=== PATIENT | female | born 1940 | race Caucasian/White ===

== ENCOUNTER → 2017-11-15 | Day surgery (SDC) | payer MEDICARE, OTHER ==
[~2017-11-15] VITALS: Ht 152.4 cm; Wt 74.8 kg
[~2017-11-15] MED LIST: ALENDRONATE SOD70 M1 PO; ASPIRIN FOR CHI81 MG PO; COREG12.5 MG PO; CRESTOR20 MG PO; DARVOCET N 1001 TAB PO; HYZAAR 25 MG-101 TAB PO; LEVAQUIN250 MG PO; NORVASC5 MG PO; OMEPRAZOLE20 MG PO; [UNRECOGNIZED DRUG - OTHER] OPH
--- NOTE | ~2017-11-15 | O ---
[place], [place] OPERATIVE NOTE NAME: KIRSTY SELBY UNIT #: [id number] ROOM: DOCTOR: HENRIETTA BOGGS MD BIRTHDATE: [birth year] DOS: 11/15/2017 PREOPERATIVE DIAGNOSIS: Combined forms of age-related cataract, left eye POSTOPERATIVE DIAGNOSIS: Combined forms of age-related cataract, left eye OPERATION: Extracapsular cataract extraction by phacoemulsification with posterior chamber intraocular lens implantation, left eye. ANESTHESIA: Monitored standby. OPERATIVE FINDINGS AND PROCEDURE: 2% Xylocaine topical anesthetic gel was applied to the eye in the preop area. The patient was taken to the operating room and prepped and draped in the standard fashion for sterile intraocular surgery. A time out procedure was performed verifying correct patient, correct site and corrects lens with Susanna Boggs M.D. The operating microscope was swung into position and the lid speculum was inserted. Using a [place] paracentesis blade, a paracentesis was made through clear cornea. Viscoelastic was used to fill the anterior chamber. Using a metal keratome a 2.4 mm self-sealing clear corneal cataract incision was made temporally at the limbus. Using a pre-bent 25 gauge cystotome needle, a standard continuous curvilinear capsulorrhexis was performed. The anterior capsule was removed with forceps. The lens nucleus was hydrodissected and phacoemulsified in the posterior chamber. Cortical material was removed with the irrigation aspiration hand piece and the posterior capsule was then polished with a curet under irrigation. The posterior chamber and capsular bag were filled with viscoelastic. A posterior chamber intraocular lens manufactured by: [employer], Model #[id number], and 21.5 diopters in strength were then inserted into the posterior chamber and within the capsular bag using the lens cartridge and injector system. Viscoelastic was removed using the irrigation aspiration handpiece. The anterior chamber was filled with balanced salt solution through the paracentesis. Both the paracentesis site and cataract incisions were hydrated with BSS and verified to be water-tight and self-sealing. Cefuroxime 1 mg/0.1 mL was injected into the anterior chamber through the paracentesis site. The incision checked to be water-tight using a Weck-Susy sponge. The integrity of the cataract wound and ocular tension were checked. Lid speculum and drapes were removed. The patient was transferred from the operating room to the recovery room in satisfactory condition. [place], [place] OPERATIVE NOTE NAME: KIRSTY SELBY UNIT #: [id number] ROOM: DOCTOR: HENRIETTA BOGGS MD BIRTHDATE: [birth year] HENRIETTA BOGGS MD CM:OPRECORD:OPERATIVE NOTE [id number] HENRIETTA BOGGS MD 11/21/17 1019 interface
[2017-11-15 07:00] VITALS: BP 126/78
[2017-11-15 08:52] VITALS: BP 143/87
[2017-11-15 09:06] VITALS: BP 140/75
== END | disposition home or self-care (01) ==
LOC: SDC 11-13 11:00
DX: H25.812 Combined forms of age-related cataract, left eye (principal); I10 Essential (primary) hypertension; K21.9 Gastro-esophageal reflux disease without esophagitis; E78.00 Pure hypercholesterolemia, unspecified; Z79.899 Other long term (current) drug therapy; M19.90 Unspecified osteoarthritis, unspecified site; Z88.2 Allergy status to sulfonamides

== ENCOUNTER → 2017-12-06 | Day surgery (SDC) | payer MEDICARE, OTHER ==
[~2017-12-06] VITALS: Ht 152.4 cm; Wt 74.8 kg
[~2017-12-06] MED LIST changes: +ATORVASTATIN CA40 M1 PO; +COREG12.5 M1 PO; -COREG12.5 MG PO; +METFORMIN HCL500 MG PO; -OMEPRAZOLE20 MG PO; +OMEPRAZOLE40 MG PO; +VITAMIN D3400 UNI1 PO
--- NOTE | ~2017-12-06 | O ---
[place], [place] OPERATIVE NOTE NAME: KIRSTY SELBY UNIT #: [id number] ROOM: DOCTOR: HENRIETTA BOGGS MD BIRTHDATE: [birth year] DOS: 12/06/2017 PREOPERATIVE DIAGNOSIS: Cataract, right eye. POSTOPERATIVE DIAGNOSIS: Cataract, right eye. OPERATION: Extracapsular cataract extraction by phacoemulsification with posterior chamber intraocular lens implantation, right eye. ANESTHESIA: Monitored standby. OPERATIVE FINDINGS AND PROCEDURE: 2% Xylocaine topical anesthetic gel was applied to the eye in the preop area. The patient was taken to the operating room and prepped and draped in the standard fashion for sterile intraocular surgery. A time out procedure was performed verifying correct patient, correct site and corrects lens with Susanna Boggs M.D. The operating microscope was swung into position and the lid speculum was inserted. Using a [place] paracentesis blade, a paracentesis was made through clear cornea. Viscoelastic was used to fill the anterior chamber. Using a metal keratome a 2.4 mm self-sealing clear corneal cataract incision was made temporally at the limbus. Using a pre-bent 25 gauge cystotome needle, a standard continuous curvilinear capsulorrhexis was performed. The anterior capsule was removed with forceps. The lens nucleus was hydrodissected and phacoemulsified in the posterior chamber. Cortical material was removed with the irrigation aspiration hand piece and the posterior capsule was then polished with a curet under irrigation. The posterior chamber and capsular bag were filled with viscoelastic. A posterior chamber intraocular lens manufactured by: [employer], Model #[id number], and 21.5 diopters in strength were then inserted into the posterior chamber and within the capsular bag using the lens cartridge and injector system. Viscoelastic was removed using the irrigation aspiration handpiece. The anterior chamber was filled with balanced salt solution through the paracentesis. Both the paracentesis site and cataract incisions were hydrated with BSS and verified to be water-tight and self-sealing. Cefuroxime 1 mg/0.1 mL was injected into the anterior chamber through the paracentesis site. The incision checked to be water-tight using a Weck-Susy sponge. The integrity of the cataract wound and ocular tension were checked. Lid speculum and drapes were removed. The patient was transferred from the operating room to the recovery room in [facility] condition. [place], [place] OPERATIVE NOTE NAME: KIRSTY SELBY UNIT #: [id number] ROOM: DOCTOR: HENRIETTA BOGGS MD BIRTHDATE: [birth year] HENRIETTA BOGGS MD CM:OPRECORD:OPERATIVE NOTE [id number] HENRIETTA BOGGS MD 12/06/17 0901 interface
[2017-12-06 07:42] VITALS: BP 113/74
[2017-12-06 08:36] VITALS: BP 111/82
[2017-12-06 08:49] VITALS: BP 115/79
[2017-12-06 09:04] VITALS: BP 110/71
== END ==
LOC: SDC 12-01 10:15
DX: E11.36 Type 2 diabetes mellitus with diabetic cataract (principal); Z88.2 Allergy status to sulfonamides; I10 Essential (primary) hypertension; E78.00 Pure hypercholesterolemia, unspecified; K21.9 Gastro-esophageal reflux disease without esophagitis; Z79.84 Long term (current) use of oral hypoglycemic drugs; Z80.9 Family history of malignant neoplasm, unspecified

== ENCOUNTER → 2017-12-13 | Outpatient (CLI) | payer MEDICARE, OTHER | END | disposition home or self-care (01) | LOC: MAMMO 07:33 | DX: Z12.31 Encounter for screening mammogram for malignant neoplasm of breast (principal) ==

== ENCOUNTER 2018-04-27 12:15 | Emergency (ER) | payer MEDICARE, OTHER ==
--- NOTE | ~2018-04-27 | EKG ---
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
[~2018-04-27 12:15] MED LIST changes: -METFORMIN HCL500 MG PO; +METFORMIN HYDR500 MG PO
[2018-04-27 12:34] LABS: BASO % 0.6 % (0.0-1.0); EOS # 0.1 10*3/uL (0.0-0.4); EOS % 1.8 % (1.0-4.0); HEMATOCRIT 37.3 % (37.0-47.0); HEMOGLOBIN 12.2 g/dl (12.0-16.0); LYMPH # 1.7 10*3/uL (1.3-4.4); LYMPH % 25.4 % (27.0-41.0); MEAN CELL VOLUME 90.8 fl (81.0-99.0); MEAN CORPUSCULAR HGB 29.7 pg (27.0-31.0); MEAN CORPUSCULAR HGB CONC 32.7 g/dl (33.0-37.0); MEAN PLATELET VOLUME 10.9 fl (9.6-12.3); MONO # 0.4 10*3/uL (0.1-1.0); MONO % 6.3 % (3.0-9.0); NEUT # 4.5 10*3/uL (2.3-7.9); NEUT % 65.6 % (47.0-73.0); PLATELET COUNT AUTOMATED 194 10*3/uL (130-400); RED BLOOD COUNT 4.11 10*6/uL (4.10-5.10); RED CELL DISTRI WIDTH 13.8 % (0-14.5); WHITE BLOOD COUNT 6.8 10*3/uL (4.8-10.8)
[2018-04-27 12:44] LABS: ACT PARTIAL THROMBO TIME 21.9 SECONDS (20.8-31.5)
[2018-04-27 12:54] LABS: ALBUMIN 3.4 gm/dl (3.1-4.5); ALKALINE PHOSPHATASE 60 U/L (45-117); BUN 17 mg/dl (7-24); CHLORIDE 108 mmol/L (98-107); CPK 84 U/L (26-192); CREATININE 0.77 mg/dL (0.55-1.02); POTASSIUM 3.7 mmol/L (3.5-5.1); SGOT/AST 16 IU/L (3-35); SGPT/ALT 19 U/L (12-78); SODIUM 143 mmol/L (136-145); TOTAL PROTEIN 6.7 gm/dL (6.4-8.2)
[2018-04-27 12:55] LABS: CKMB < 1.0 ng/ml (0.5-3.6)
[2018-04-27 13:00] LABS: TROPONIN I < 0.015 ng/ml (<0.045)
[2018-04-27 14:45] VITALS: BP 116/60
[2018-05-12] MEDS ORDERED: XALATAN 0.005%2.5 ML INTRAOC (10:43)
[2018-05-12] MEDS ORDERED: Synthroid,Levo25 MCG PO (10:47)
[2018-05-12] MEDS ORDERED: TYLENOL325 M1 PO (10:48)
[2018-05-14] MEDS ORDERED: CIPRO500 MG PO (13:42)
[2018-05-14] MEDS ORDERED: ENOXAPARIN80 MG/0.2 SC (13:42)
[2018-05-20] MEDS ORDERED: BIOFREEZE118 ML T (21:50)
[2018-05-20] MEDS ORDERED: Lovenox80 MG/0.8 SC (21:53)
[2018-05-20] MEDS ORDERED: MOM30 M1 PO (21:54)
[2018-05-20] MEDS ORDERED: SYNTHROID25 MCG PO (21:55)
[2018-05-20] MEDS ORDERED: VITAMIN D34000 UNIT PO (21:56)
[2018-05-25] MEDS ORDERED: PROTONIX40 MG PO (14:02)
[2018-05-25] MEDS ORDERED: Carafate1 GM/10 ML PO (14:02)
[2018-05-25] MEDS ORDERED: AUGMENTIN 875875 MG PO (14:02)
== END 2018-04-27 15:05 | disposition short-term general hospital (02) ==
LOC: ED 12:15
PROVIDERS: Nurse Practitioner Family
DX: M48.02 Spinal stenosis, cervical region (principal); R53.1 Weakness; Z88.2 Allergy status to sulfonamides; Z79.899 Other long term (current) drug therapy

== ENCOUNTER 2018-08-22 18:06 | Inpatient (IN) | payer MEDICARE, OTHER, MEDICAID ==
[2018-08-22] VITALS (33 sets, daily range): BP systolic 57–130; BP diastolic 0–82
[~2018-08-22] VITALS: Ht 157.5 cm; Wt 75.0 kg
--- NOTE | ~2018-08-22 | CON ---
[place], [place] REPORT OF CONSULTATION NAME: KIRSTY SELBY UNIT #: [id number] ROOM: 422 DOCTOR: SOFIA FLEMING MD BIRTHDATE: [birth year] DOS: 08/26/2018 GASTROENDOSCOPIC REPORT HISTORY OF PRESENT ILLNESS: This is a 77-year-old patient who [facility] with a chief complaint of GI, complaining of abdominal pain, cramp, some blood in the stool. She has been found to have C. diff colitis, was consulted for evaluation of colitis that resolved resulted through CT scan of the abdomen and pelvis. Recent lab results, basic metabolic panel. Electrolytes imbalance, calcium 7.7 secondary to low albumin. Her H and H dropped to 8 and 26 with platelets of 320. Blood cultures no growth. Chest x-ray recent studies, a small bilateral pleural effusion is noticed. Urine cultures greater than 100,000 E. coli. Stool cultures negative for enteric pathogen except C. diff positivity. CBC differential; white blood cell was 11.6 yesterday with H and H of 8 and 26. C. diff day before yesterday was declared positive. Gallbladder screening was done that previously suggested pericholecystic fluid and gallbladder wall thickening on CT is not appreciated on studies, perhaps it was a false-positive reading. No sonographic evidence of cholelithiasis or sludge was noticed. Comprehensive metabolic panel and liver function tests have been normal. Total albumin 1.9. PAST MEDICAL HISTORY: Associated hyperlipidemia, hypothyroidism, pulmonary embolism, spinal stenosis, urinary tract infection, diabetes mellitus, osteoarthritis, and Guillain-Porcupine syndrome. SOCIAL HISTORY: Resides in penitentiary. Recently for the past several weeks has stopped smoking that has been ongoing since teenage. Nonalcohol consumer. FAMILY HISTORY: Noncontributory. ALLERGIES: SULFA DRUGS. MEDICATIONS: List has been reviewed. REVIEW OF SYSTEMS: HEENT: Denies double vision, blurred vision. RESPIRATORY: Denies acute shortness of breath. CARDIOVASCULAR: Denies acute chest pain. DIGESTIVE SYSTEM: Diarrhea, abdominal cramps, C. diff positivity. PHYSICAL EXAMINATION: GENERAL: Bedridden patient. HEENT: Head: Normocephalic, nontraumatic. Mouth and buccal mucosa benign. No aphthoid ulceration. No thrush. NECK: Supple, no thyromegaly, no cervical lymphadenopathy. CHEST: Symmetric anatomy, equal expansion. No wheeze, no rhonchi. ABDOMEN: Slightly globular. Bowel sounds present. No pulsatile mass. No rebound effect. Nonspecific tender. EXTREMITIES: Right hand edema, 1+ edema of lower extremities. NEUROLOGICAL: Alert, oriented, slightly slow. [place], [place] REPORT OF CONSULTATION NAME: KIRSTY SELBY UNIT #: [id number] ROOM: 422 DOCTOR: SOFIA FLEMING MD BIRTHDATE: [birth year] LABORATORY DATA: Reviewed. Records reviewed. Data reviewed. IMPRESSION: Colitis secondary to Clostridium difficile toxicity secondary to antibiotic therapy, urinary tract infection with Escherichia coli. Other adjunctive diagnoses as outlined in the paragraph of past medical, surgical history. PLAN AND DISCUSSION: We are going to continue with Flagyl IV 500 mg q.8 hours as well. We are going to continue with vancomycin 250 mg q.i.d. and Infectious Disease is managing the UTI, history of Guillain-Porcupine, history of diarrhea and protein calorie malnutrition, all have been recognized as well as dictated above, hypothyroidism, hyperlipidemia, osteoarthritis, diabetes mellitus, pulmonary embolism and cervical spine stenosis. At the present time, I do not believe that the patient has cholecystitis. This has been ruled out after sonographic studies as well as there is no support for it on liver function tests. Thank you very much indeed for your kind referral. SOFIA FLEMING MD CM:CONSTR:REPORT OF CONSULTATION 1149 08/27/18 0556 interface
--- NOTE | ~2018-08-22 | CON ---
[place], [place] REPORT OF CONSULTATION NAME: KIRSTY SELBY UNIT #: [id number] ROOM: [facility] DOCTOR: JOSE LUIS EDWARDS,KEITH BIRTHDATE: [birth year] DOS: 08/23/2018 CARDIOLOGY CONSULTATION REASON FOR CONSULTATION: Bradycardia. CLINICAL HISTORY: The patient is a 77-year-old patient with a history of Guillain-[place] syndrome, diabetes, hypertension, hypothyroidism, was presented to the Emergency Room by EMS because of vomiting and diarrhea due to respiratory insufficiency. The patient was intubated; hence, the history was obtained from her medical records as well as Emergency Room record. There is no family at bedside at the time of my examination. The patient was diagnosed with sepsis and hypotension, was on inotropic support; however, overnight, the patient noted to be hypotensive and bradycardic, hence Cardiology was consulted. The patient was sedated on the ventilator; hence, her medical history and history of present symptoms were obtained from her chart. At the time of my examination, the patient was on ventilator, sedated. Her blood pressures are stable. Heart rates are stable in 80s. REVIEW OF SYSTEMS: Review of the 10 systems is incomplete and limited due to the patient being on ventilator and sedated and there is no family at bedside. PAST MEDICAL HISTORY: 1. Hypertension. 2. 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 3. History of bradycardia. 4. Dyslipidemia. 5. Hypercoagulable state. 6. Hypothyroidism. 7. Anemia. 8. History of pulmonary emboli. 9. Hiatal hernia. 10. Peptic ulcer disease. PAST SURGICAL HISTORY: History of colonoscopy and upper endoscopy. SOCIAL HISTORY: The patient was a former smoker, no illicit drugs, no alcohol. FAMILY HISTORY: Nil contributory. Mother has diabetes. ALLERGIES: Reviewed, including SULFA. HOME MEDICATIONS: Reviewed. REVIEW OF THE DIAGNOSTIC TESTS: Her labs, imaging studies and rhythm strips reviewed. EKG shows sinus rhythm with sinus bradycardia, no acute ST-T changes. The patient was on the ventilator and sedated. PHYSICAL EXAMINATION: [place], [place] REPORT OF CONSULTATION NAME: KIRSTY SELBY UNIT #: [id number] ROOM: [facility] DOCTOR: JOSE LUIS EDWARDS,KEITH BIRTHDATE: [birth year] VITAL SIGNS: Blood pressure 100/78, pulse 80, respiration 16, weight 75 kilos, BMI 30.2. GENERAL: The patient was sedated and on the ventilator. HEAD AND NECK: Limited due to the patient being on the ventilator and sedated. NECK: Supple, no distended neck veins. No carotid bruit. CHEST: Symmetrical. LUNGS: A few scattered rhonchi, diminished at bases. HEART: Regular rhythm, no S3. Grade 1/6 systolic murmur. ABDOMEN: Bowel sounds normal. EXTREMITIES: Showed 1+ edema bilaterally. Distal pulses are palpable. SKIN: Warm and dry. No cyanosis, no clubbing. RECTAL: Deferred. GENITOURINARY: Deferred. REVIEW OF THE IMAGING STUDIES: CT of the chest showed some bilateral pleural effusions and multiple pulmonary nodules. CT abdomen showed a distended gallbladder with thickening of the wall. IMPRESSION: 1. Bradyarrhythmia, resolved. 2. Hypotensive shock, stable currently off inotropic support. 3. Possible sepsis. 4. Respiratory failure, the patient is on the ventilator. 5. Recent Guillain-Lisbon syndrome. 6. Hypertension history. 7. Pleural effusions. 8. Diabetes type 2. 9. History of pulmonary emboli. RECOMMENDATIONS: 1. Currently, blood pressure and heart rates are stable. 2. A 2D echo from a few months ago noted. Continue to monitor heart rate and blood pressures. 3. No further cardiac testing at this time. 4. Pulmonary and Critical Care was consulted for her ventilator management. 5. As I was leaving the ICU, I bumped into her family and her case and cardiac events were discussed with her family members and all questions were answered. KEITH AMAYA MD CM:CONSTR:REPORT OF CONSULTATION 2213 08/24/18 0010 interface
--- NOTE | ~2018-08-22 | PR ---
[place], [place] PROGRESS NOTE [id number] UNIT #: [id number] ROOM: [facility] DOCTOR: VINICIO MCKENZIE MD,ANKITA BIRTHDATE: [birth year] DOS: 08/24/2018 PULMONARY PROGRESS NOTE SUBJECTIVE: The patient has been noted comfortable at this time. She was successfully liberated from mechanical ventilation yesterday and completed a trial of CPAP prior to liberation from mechanical ventilation. Currently, comfortably resting on the bed. She has not been noted any symptoms of chest pain, fever or chills. The patient did not report any symptoms of nausea or vomiting. The diarrhea for the patient was still noted at the time, currently has a rectal tube in place. The patient has ultrasound of the abdomen completed yesterday for assessment of possibility of cholecystitis. She has been also consulted by Dr. Hogan for assessment of diarrhea, possibly colitis and other issues. She denies any symptoms of headache or diplopia. Remaining systems were reviewed, they were noted all negative. OBJECTIVE: VITAL SIGNS: Temperature noted as T-max recorded at 100.4 degree Fahrenheit to normal temperature, respiratory rate 17, heart rate 90, blood pressure 120/65 to 107/67. Intake of 3040 mL, output 3352 mL. NG tube output decreased to 400 mL, which has been removed. ____ 312 mL. HEENT: Shows head was atraumatic, eyes nonicterus. NECK: Supple. CARDIOVASCULAR: S1 and S2 audible. LUNGS: Noted clear. There were no crackles. ABDOMEN: Soft. Bowel sounds were present. There was no tenderness. EXTREMITIES: The patient was noted without any acute edema. MUSCULOSKELETAL: Without any acute deformities. CENTRAL NERVOUS SYSTEM: Generalized weakness was noted secondary to recent history of Guillain-[place] syndrome. DIAGNOSTIC DATA: CMP this morning, BUN normal, creatinine was normal, potassium decreased at 3.0. Albumin 1.9, which is low. CBC: WBC count 13.8, hemoglobin 8.0, hematocrit 25.5, platelet count 352,000. Ultrasound of the abdomen, which was done this morning, was noted resolution of previous pericholecystic fluid and thickening of the gallbladder. IMPRESSION: 1. The patient has been currently admitted to the hospital, noted with possibility of VRE infection with acute sepsis and septic shock. Improvement in end-organ damage and kidney function which are involved. 2. Hypokalemia secondary to diuretics. 3. Fluid overload secondary to current aggressive fluid resuscitation on admission. 4. Resolution of lactic acidosis and acute chronic colitis as suggested by the GI services. There was no evidence of C. diff colitis. There was no GI problem noted. Ultrasound of the abdomen, which was done this morning, does not show any evidence of acute cholecystitis radiologically. PLAN OF MANAGEMENT: Continue antibiotic with reduction antibiotic spectrum [place], [place] PROGRESS NOTE NAME: KIRSTY SELBY UNIT #: [id number] ROOM: [facility] DOCTOR: VINICIO MCKENZIE MD,ANKITA BIRTHDATE: [birth year] based on all the culture results. Follow the recommendations from Infectious Disease specialist. Monitor all the culture results. Oxygen supplementation to maintain pulse ox 92% or greater. Continue to monitor GI symptoms as well. Supportive care. Bronchodilators to continue to be administered to mobilize secretions. Supportive care, other treatment therapy, and plan of management. Cultures of the endotracheal aspirate is pending. Gram stain has been noted moderate white blood cells and few epithelial cells with gram-positive cocci in pairs. Vasopressor has been already discontinued this morning with gradual tapering. Intravenous fluid will be discontinued later on today. Supplementation of potassium orally. The past, family, social, and surgical history of the patient remains unchanged since my consultation of yesterday. ANKITA MOONEY MD CM:PNTRANS [id number] ANKITA MCKENZIE MD 08/24/18 1031 interface
--- NOTE | ~2018-08-22 | PR ---
[place], [place] PROGRESS NOTE NAME: KIRSTY SELBY UNIT #: [id number] ROOM: 422 DOCTOR: VINICIO MCKENZIE MD,ANKITA BIRTHDATE: [birth year] DOS: 08/28/2018 PULMONARY ADDENDUM NOTE SUBJECTIVE: The patient has been seen and examined, [id number] encounter. History was confirmed. Labs were reviewed. Assessment and management of the patient today noted partially completed. Note done by the medical imaging technician approved. She has been noted comfortable at this time, resting on the bed with gradual improvement in the respiratory symptom noted, symptoms of shortness of breath has been noted, mild at rest. Denies symptoms of fever or chills. Denies symptoms of hematemesis or melena. Continued on aggressive treatment for C. diff colitis as well and being closely monitored by the GI Services for that. PHYSICAL EXAMINATION: VITAL SIGNS: Normal temperature, respiratory rate of 18, heart rate of 93, blood pressure 136/93. Pulse oxygen saturation recorded as 94% on 2 liters nasal cannula. HEENT: Head was atraumatic. Eyes nonicterus. CARDIOVASCULAR: S1, S2 audible. LUNGS: Without any wheeze or crackles. ABDOMEN: Soft, hyperactive bowel sounds without any tenderness. IMPRESSION: The patient with a stable respiratory status, status post liberation from mechanical ventilation, acute Clostridium difficile colitis and history of recent diagnosis for the management of Guillain-[place] syndrome. PLAN OF MANAGEMENT: Bedside physical therapy, oxygen supplementation and other treatment therapy, plan of management in progress will be continued. Usual care. ANKITA MOONEY MD CM:PNTRANS [phone] ANKITA MCKENZIE MD 08/29/18 0004 interface
--- NOTE | ~2018-08-22 | PR ---
[place], [place] PROGRESS NOTE NAME: KIRSTY SELBY UNIT #: [id number] ROOM: 422 DOCTOR: VINICIO MCKENZIE MD,ANKITA BIRTHDATE: [birth year] DOS: 08/26/2018 SUBJECTIVE: The patient has been noted comfortable at this time and transferred from the Intensive Care Unit to the telemetry floor. The diarrhea still reported. There was no symptoms of shortness of breath, coughing, or sputum expectoration. She has been treated for the C. diff colitis with intravenous Flagyl and oral vancomycin high dose. The patient denies any symptoms of sputum expectoration, [id number]-mu-fscmwyld cough noted at times. OBJECTIVE: VITAL SIGNS: Normal temperature, respiratory rate 18, heart rate 75, blood pressure 155/95. Pulse ox saturation on 2 liters nasal cannula 96% saturation. HEENT: Head was atraumatic. Eyes nonicterus. NECK: Supple. CARDIOVASCULAR: S1, S2 audible. LUNGS: Without any wheeze or crackles. ABDOMEN: Soft, nontender, bowel sounds present. EXTREMITIES: No acute edema. IMPRESSION: 1. Acute C. difficile colitis with stable respiratory failure, status post liberation from mechanical ventilation with Escherichia coli pneumonia. PLAN OF TREATMENT: No changes in plan of treatment, the patient seems to be doing clinically better and would be continue current therapy, plan of management and care plan, usual care and supportive plan of treatment and therapies. ANKITA MOONEY MD CM:PNTRANS [id number] ANKITA MCKENZIE MD 08/27/18 0522 interface
--- NOTE | ~2018-08-22 | PR ---
[place], [place] PROGRESS NOTE NAME: KIRSTY SELBY UNIT #: [id number] ROOM: 422 DOCTOR: VINICIO MCKENZIE MD,ANKITA BIRTHDATE: [birth year] DOS: 09/01/2018 PULMONARY PROGRESS NOTE SUBJECTIVE: The patient was noted comfortable at this time without any acute distress, has not been noted with symptoms of chest pain, fever or chills. The diarrhea of the patient has resolved. Currently, the patient was noted somewhat constipated. There were no symptoms of cough reported by the patient. OBJECTIVE: VITAL SIGNS: For the patient, which have been recorded shows a normal temperature, respirations 16, heart rate 76, blood pressure 133/92. Pulse oxygen saturation recorded as 97% on 2 liters nasal cannula. HEENT: Examination shows head was atraumatic. Eyes nonicterus. CARDIOVASCULAR: S1, S2 audible. ABDOMEN: Soft. Bowel sounds present. EXTREMITIES: Without acute edema. IMPRESSION: 1. Stable respiratory status, requiring 2 liters of oxygen supplementation with respiratory failure. 2. Resolving Clostridium difficile colitis. 3. 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 PLAN OF MANAGEMENT: Continue the current therapy at this time as in progress. Usual care, other supportive plan of management and care plan and treatment and therapies. Usual treatment, other therapies. ANKITA MOONEY MD CM:PNTRANS [id number] ANKITA MCKENZIE MD 09/02/18 0017 interface
--- NOTE | ~2018-08-22 | PR ---
[place], [place] PROGRESS NOTE NAME: KIRSTY SELBY UNIT #: [id number] ROOM: 422 DOCTOR: VINICIO MCKENZIE MD,ANKITA BIRTHDATE: [birth year] DOS: 09/04/2018 SUBJECTIVE: The patient noted comfortable at this time, resting without any acute shortness of breath, coughing, sputum expectoration, or chest pain. She was complaining of mild diarrhea this morning. Otherwise, the patient noted constipated as well. Continue to receive the medical management of C. difficile colitis. The oxygen supplement was given for medical management of hypoxia. OBJECTIVE: VITAL SIGNS: Normal temperature, respiratory rate 17, heart rate 86, blood pressure ____ 114/76. The pulse oxygen saturation on 2 liters nasal cannula 97% saturation. HEENT: Examination shows head was atraumatic. Eyes nonicterus. NECK: Supple. CARDIOVASCULAR: S1, S2 audible. LUNGS: Without wheeze or crackles. ABDOMEN: Soft and nontender. IMPRESSION: Stable respiratory status, pulmonary standpoint with respiratory failure. 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 Discharge planning at this time, but still pending. The patient has been [facility] to [facility] and will be transferred after completion of paperwork authorization. ANKITA MOONEY MD CM:PNTRANS [phone] ANKITA MCKENZIE MD 09/04/18 1525 interface
--- NOTE | ~2018-08-22 | PR ---
[place], [place] PROGRESS NOTE NAME: KIRSTY SELBY UNIT #: [id number] ROOM: 422 DOCTOR: VINICIO MCKENZIE MD,ANKITA BIRTHDATE: [birth year] DOS: 08/29/2018 The patient was independently seen and examined in titl-yu-loyi encounter. History was confirmed. Physical examination performed. Labs were reviewed. Note done by the emergency medical service manager approved. The assessment and management of the patient's today's note was personally completed. SUBJECTIVE: The patient was still noted with significant weakness, which are noted generalized. She has a rectal tube in place for the diarrhea and C. diff colitis. Shortness of breath of the patient was noted stable. There were no symptoms of coughing, sputum expectoration or any chest pain. OBJECTIVE: VITAL SIGNS: Vital signs of the patient, which has been recorded shows a normal temperature, respiratory rate 18, heart rate of 86, blood pressure 122/77. HEENT: No acute change. NECK: Supple. CARDIOVASCULAR: S1, S2 audible. LUNGS: Without any wheeze or crackles at the present time. ABDOMEN: Soft, nontender. Bowel sounds present. EXTREMITIES: Without any acute edema. 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 PLAN OF MANAGEMENT: Continuation of current therapy, plan of management. Discharge planning of the patient after clearance from the Infectious Disease specialist. In the meantime, continue other therapy, plan of management, care plan of treatment. Usual care and therapies. ANKITA MOONEY MD CM:PNTRANS [id number] ANKITA MCKENZIE MD 08/29/187 interface
--- NOTE | ~2018-08-22 | PR ---
[place], [place] PROGRESS NOTE NAME: KIRSTY SELBY UNIT #: [id number] ROOM: 422 DOCTOR: VINICIO MCKENZIE MD,ANKITA BIRTHDATE: [birth year] DOS: 09/03/2018 SUBJECTIVE: The patient was noted comfortable at this time without any acute distress. She denies symptoms of chest pain, shortness of breath at rest, noted mostly bed bound because of current neuromuscular weakness after the Guillain-[place] syndrome. The patient denies symptoms of chest pain or cough. OBJECTIVE: VITAL SIGNS: Normal temperature, respiratory rate 18, pulse 94, blood pressure 128/80 to 157/96. Pulse oxygen saturation recorded on 2 liters 90% saturation. HEENT: No acute change. NECK: Supple. CARDIOVASCULAR: S1, S2 audible. LUNGS: The patient was noted without any wheezing or crackles at the present time. ABDOMEN: Soft, nontender. EXTREMITIES: No edema. IMPRESSION: Stable respiratory status, respiratory failure, still requires oxygen supplementation due to muscular weakness for the patient from history of Guillain-[place] syndrome. PLAN OF MANAGEMENT: No changes in plan of therapy at this time. Continue the patient's current therapy, plan of management and care plan of treatment. Other supportive therapy, plan of management, care plan and treatment and therapies. ANKITA MOONEY MD CM:PNTRANS [phone] ANKITA MCKENZIE MD 09/03/18 2313 interface
--- NOTE | ~2018-08-22 | PR ---
[place], [place] PROGRESS NOTE NAME: [id number] UNIT #: [id number] ROOM: 422 DOCTOR: VINICIO MCKENZIE MDANKITA BIRTHDATE: [birth year] DOS: 08/25/2018 PULMONARY PROGRESS NOTE SUBJECTIVE: The patient was still noted diarrhea with abdominal cramping and pain. Shortness of breath has been noted improved. Oxygen supplementation continued with nasal cannula. She has not been noted symptoms of fever or chills. Culture of the endotracheal aspirate noted abnormal for gram-negative bacilli. Isolation of E. coli, it was noted pansensitive organism. The patient has not been noted symptoms of fever or chills. General weakness and fatigue were noted. She denies any pain or edema of the lower extremities. Remaining systems were reviewed and they were noted all negative. PHYSICAL EXAMINATION: VITAL SIGNS: Normal temperature to 99 degree Fahrenheit, respiratory rate of 17-19, heart rate of 72-83, and blood pressure of 121/94-137/92. The pulse oxygen saturation on 3 liters nasal cannula was 98% saturation. HEENT: On examination, head was atraumatic. Eye nonicterus. NECK: Supple. CARDIOVASCULAR SYSTEM: S1, S2 is audible. LUNGS: The patient was noted without any crackles, rhonchi, or wheezing. ABDOMEN: Soft, nontender. Bowel sounds present. EXTREMITIES: The patient noted without any acute edema. MUSCULOSKELETAL: Without any acute deformities. CENTRAL NERVOUS SYSTEM: Cranial nerves 2-12 were noted intact. Generalized weakness was noted. IMPRESSION: 1. The patient has been currently noted with Clostridium difficile colitis with repeat specimen noted positive. 2. A 4 mm nodule in the left upper lobe at this time to be further addressed as an outpatient. 3. Escherichia coli isolation, endobronchial tree, possibility of bronchitis cannot be completely excluded. PLAN OF MANAGEMENT: Aggressive management of the C. difficile colitis. Bronchodilators administration. The patient has been receiving the intravenous Flagyl and oral high dose of vancomycin. Rocephin could be given for a total of 5 days and then it could be discontinued. Other supportive therapy, plan of management, care plan, and treatment. Physical therapy at the bedside. The patient will be transferred from Intensive Care Unit to the medical floor for continued medical management. Oxygen supplementation to maintain pulse ox saturation of 92% or greater. [place], [place] PROGRESS NOTE NAME: KIRSTY SELBY UNIT #: [id number] ROOM: 422 DOCTOR: VINICIO MCKENZIE MD,ANKITA BIRTHDATE: [birth year] ANKITA MOONEY MD CM:PNJENIFER [phone] ANKITA MCKENZIE MD 08/26/18210 interface
--- NOTE | ~2018-08-22 | PR ---
[place], [place] PROGRESS NOTE NAME: KIRSTY SELBY UNIT #: [id number] ROOM: 422 DOCTOR: VINICIO MCKENZIE MD,ANKITA BIRTHDATE: [birth year] DOS: 09/02/2018 SUBJECTIVE: Comfortably resting on the bed without any acute distress. There were no symptoms of chest pain, coughing, shortness of breath reported at this time are noted with severe generalized neuromuscular weakness that remains persistent diarrhea, resolved. OBJECTIVE: VITAL SIGNS: Normal temperature, respiratory rate 18, heart rate 85, blood pressure 146/93. Pulse oxygen saturation recorded as 92% on 2 liter nasal cannula at rest. HEAD, EYES, EARS, NOSE, AND THROAT: No acute change. NECK: Supple. CARDIOVASCULAR SYSTEM: S1, S2 audible. LUNGS: Without any wheezing or crackles. ABDOMEN: Soft, nontender. EXTREMITIES: No edema. IMPRESSION: Stable respiratory status, acute respiratory failure liberation from mechanical ventilation, neuromuscular weakness secondary to Guillain-[place] syndrome, resolving C. difficile colitis. PLAN OF TREATMENT: No change in plan of management. Continue oxygen supplementation, maintain a pulse ox 92% or greater. Other therapy, plan of management and care as previously. Usual care, other supportive plan of management and treatments. ANKITA MOONEY MD CM:PNTRANS [phone] ANKITA MCKENZIE MD 09/02/18 1519 interface
--- NOTE | ~2018-08-22 | PR ---
[place], [place] PROGRESS NOTE NAME: KIRSTY SELBY UNIT #: [id number] ROOM: 422 DOCTOR: NAVIN JULES DO BIRTHDATE: [birth year] DOS: 08/29/2018 SUBJECTIVE: The patient was seen and evaluated on general medical floor. The patient notes that her diarrhea is improving at this time. The patient denies any acute shortness of breath, wheezing, sputum production or any chest pain. The patient is comfortable. PHYSICAL EXAMINATION: VITAL SIGNS: Temperature 97.8, pulse 86, respiratory rate 18, blood pressure 123/77, pulse ox 96% on 2 liters nasal cannula. GENERAL: The patient is alert and oriented. No signs of distress. HEENT: Atraumatic, normocephalic. Eyes: PERRLA, nonicteric. NECK: Supple. CARDIOVASCULAR: Regular rate and rhythm. No murmurs, rubs or gallops. LUNGS: Clear to auscultation bilaterally. ABDOMEN: Soft, nontender. Bowel sounds present. EXTREMITIES: No new changes or edema. NEUROLOGIC: Grossly intact. No neurological deficits. IMPRESSION: Acute Clostridium difficile colitis with resolving acute respiratory failure. PLAN OF MANAGEMENT: Continue oxygen titration to maintain pulse ox above 92%. Continue antibiotic recommendations per ID specialist for C. diff and supportive therapy, plan of management. The patient is stable for discharge from a pulmonology standpoint. Navin Jules, ANKITA MOONEY MD CM:PNJENIFER [phone] NAVIN JULES DO 08/29/18 1926 interface
--- NOTE | ~2018-08-22 | PR ---
[place], [place] PROGRESS NOTE NAME: [facility] [id number] UNIT #: [id number] ROOM: 422 DOCTOR: JAVIER SALAZARDECEMBER BIRTHDATE: [birth year] DOS: 08/25/2018 SUBJECTIVE: The patient is being followed for severe C. diff as well as UTI. She had urine culture with E. coli. She is on Rocephin for that as well as oral vancomycin for her C. diff and Flagyl. WBCs are improving. She is alert and oriented. Complains of significant pain in her bilateral shoulders, which she states is chronic. She had some nausea earlier. No emesis. Has an FMS and with liquid stool as well as Wheeler catheter in place, quadriplegic, has Guillain-[place]. Chest x-ray from today shows small bilateral pleural effusions and probable atelectasis. She has been afebrile. Further review of systems is unremarkable. CURRENT MEDICATIONS: Include Robaxin, Flagyl, Rocephin, oral vancomycin, Cepacol, Sublimaze, Protonix, Carafate, Humalog, Tylenol. LABORATORY DATA: WBCs are down to 11.6, platelets 317. BUN 8, creatinine 0.31. PHYSICAL EXAMINATION: VITAL SIGNS: Temperature 97.8, pulse 65, respirations 18, BP 137/83. GENERAL: A 77-year-old female, in no acute distress. HEAD, EYES, EARS, NOSE AND THROAT: Normocephalic, atraumatic, chronically ill in appearance. LUNGS: Diminished bilaterally. Respirations even and unlabored. HEART: Regular rhythm. No murmur appreciated. ABDOMEN: Soft, generalized tenderness. Positive bowel sounds. FMS with liquid stool. Wheeler catheter draining yellow urine with some sediment. EXTREMITIES: No edema. Does have contractures of the upper extremities. Again, she is quadriplegic. SKIN: Warm, pale, dry, free of rashes. ASSESSMENT: Clostridium difficile colitis as well as urinary tract infection with Escherichia coli. PLAN: She is to continue on p.o. vancomycin, IV Flagyl as well as Rocephin for the UTI. TINY HERRERA CNP [place], [place] PROGRESS NOTE NAME: KIRSTY SELBY UNIT #: [id number] ROOM: 422 DOCTOR: JAVIER SALAZAR BIRTHDATE: [birth year] Cathleen Sloan MD CM:PNJENIFER [id number] JANUARY JAVIER SALAZAR 08/26/18 0846 interface
--- NOTE | ~2018-08-22 | PR ---
[place], [place] PROGRESS NOTE NAME[id number] UN[facility] #: [id number] ROOM: 422 DOCTOR: SOFIA FLEMING MD BIRTHDATE: [birth year] DOS: 08/27/2018 SUBJECTIVE: A 77-year-old patient, who was presented with multiple medical issues, among which has been her urinary tract infection and a small bilateral pleural effusion compatible with atelectasis and suspected urinary tract infection as well. The patient has been on antibiotic for that purpose. Also, she is known with C. diff toxicity and she is on Flagyl and vancomycin for this coverage. Her H and H has been 9 and 28. Her white blood cell has been 8.2. In general, she appears content with progress that she has. Her appetite remains intact. Her bowel movements she understands that she has rectal tube in and has been high volume fluids that are being lost secondary to C. diff and her abdominal pain is mild. There was a concern that she may have cholecystitis. A sonographic study has been done and the sonographic study was negative for pericholecystic fluid. Her basic metabolic panel was showing electrolytes, potassium of 3.1. I need to talk to the nurse for this case. BUN and creatinine is 3 and 0.33 respectively MEDICATIONS: She is on vancomycin is 250 q.i.d. and Flagyl 500 mg t.i.d. REVIEW OF SYSTEMS: HEENT: Denies double vision, blurred vision. RESPIRATORY: Denies acute shortness of breath. CARDIOVASCULAR: Denies acute chest pain. DIGESTIVE SYSTEM: No emesis; however, nonspecific abdominal pain, diarrhea, and cramp. PHYSICAL EXAMINATION: GENERAL: The patient is a frail patient. HEENT: Head is normocephalic, nontraumatic. Mouth and buccal mucosa benign. NECK: Supple. No thyromegaly. CHEST: Symmetric anatomy. Few scattered rhonchi. HEART: Normal sinus rhythm. No gallop. No murmur. ABDOMEN: Globular, large, soft. No hepato-organomegaly. Bowel sounds present. EXTREMITIES: Benign. NEUROLOGIC: She is alert, fully oriented. IMPRESSION AND PLAN: Clostridium difficile toxicity, urinary tract infection with Escherichia coli, under treatment for urinary tract infection as well as under treatment for Clostridium difficile colitis. Other adjunctive diagnoses has been already outlined and the latest sonographic study of gallbladder has declared no pericholecystic fluid, no cholecystitis, and there were no abnormalities of LFTs. She does not have a right upper quadrant rebound tenderness. [place], [place] PROGRESS NOTE NAME: KIRSTY SELBY UNIT #: [id number] ROOM: [facility] DOCTOR: SOFIA FLEMING MD BIRTHDATE: [birth year] SOFIA FLEMING MD CM:PNTRANS [phone] SOFIA FLEMING MD 08/28/18 0443 interface
--- NOTE | ~2018-08-22 | EKG ---
[place], [place] ELECTROCARDIOGRAM REPORT NAME: KIRSTY SELBY UNIT #: [id number] ROOM: 422 DOCTOR: JESSICA DRAFT REPORT BIRTHDATE: [birth year] [facility] Test Date: 2018-08-22 Test Time: 18:28:14 Pat Name: KIRSTY SELBY Department: Room: 422 Gender: F Medical Secretary: TANESHA : 1940 Requested By: CHLOE SUERO Order Number: [id number] Reading MD: Adriana Christina MD Measurements Intervals [place] Rate: 52 P: 53 MO: 164 QRS: -31 QRSD: 107 T: 30 QT: 472 QTc: 439 Interpretive Statements Sinus rhythm Left axis deviation Baseline wander in lead(s) V1 Compared to ECG 08/17/2018 07:04:59 No significant changes Electronically Signed On 08-28-2018 11:06:45 PST by Adriana Christina MD CM:EKGRPT:ELECTROCARDIOGRAM REPORT [id number] CHLOE VALLEJO DRAFT REPORT CHLOE SUERO DO
--- NOTE | ~2018-08-22 | PR ---
[place], [place] PROGRESS NOTE NAME: KIRSTY SELBY UNIT #: [id number] ROOM: 422 DOCTOR: NAVIN JULES DO BIRTHDATE: [birth year] DOS: 08/31/2018 PULMONOLOGY PROGRESS NOTE SUBJECTIVE: The patient was seen and evaluated on the general medical floor. The patient reports that she no longer has experienced diarrhea. The patient reports they are also [facility] so that she can be discharged. The patient is comfortable at this time. PHYSICAL EXAMINATION: VITAL SIGNS: Temperature 98.7, pulse 76, respiratory rate 18, blood pressure 144/92, pulse ox 96% on 2 liters nasal cannula. HEAD: Atraumatic, normocephalic. EYES: PERRLA, nonicteric. NECK: Supple. HEART: Regular rate and rhythm. No murmurs, rubs, gallops. LUNGS: Clear to auscultation bilaterally. ABDOMEN: Soft, nontender. Bowel sounds present. EXTREMITIES: No edema, clubbing or cyanosis. NEUROLOGIC: Grossly intact. No neurological deficits. ASSESSMENT: Resolving acute Clostridium difficile colitis with resolving acute respiratory failure. PLAN OF MANAGEMENT: The patient is stable for discharge from a Pulmonology standpoint once [facility]. Continue antibiotic recommendations per ID specialist for C. diff and other supportive therapy plan of management. Navin Jules DO ANKITA MOONEY MD CM:PNJENIFER [id number] NAVIN JULES DO 08/31/18 1702 interface
--- NOTE | ~2018-08-22 | PR ---
[place], [place] PROGRESS NOTE NAME: [id number] UNIT #: [id number] ROOM: 422 DOCTOR: JAVIER SALAZARDECEMBER BIRTHDATE: [birth year] DOS: 08/26/2018 SUBJECTIVE: The patient is a 77-year-old female being followed for UTI and severe C. diff. She also suffers from Guillain [place]. She is more alert. Continues to complain of severe pain of her shoulders and arms and around C7, does have some nausea. No emesis. Continues with liquid stools ____ FMS, has Wheeler catheter in place. No shortness of breath. She has been afebrile. CURRENT MEDICATIONS: Include oral vancomycin, Robaxin, IV Flagyl, IV Rocephin, Cepacol, Sublimaze, Protonix, Carafate, Humalog, Tylenol, milk of mag. LABORATORY DATA: WBCs 9.6, platelets 324. BUN 6, creatinine 0.33. PHYSICAL EXAMINATION: VITAL SIGNS: Temperature 97.4, pulse 73, respirations 18, BP 159/104. GENERAL: A 77-year-old female, alert and oriented. HEAD, EYES, EARS, NOSE AND THROAT: Normocephalic. No thrush. She does have some tenderness at C7. LUNGS: Clear to auscultation bilaterally. Respirations even and unlabored. HEART: Regular rhythm. No murmur appreciated. ABDOMEN: Soft, mild distention, generalized tenderness. Positive bowel sounds. EXTREMITIES: No lower extremity edema, able to move her lower extremities. Left upper extremity with contracture deformity. Right upper extremity with +2 to 3 edema. She has right IJ in place. She has significant discomfort of her bilateral upper extremities, especially with any movement and severe weakness. SKIN: Warm, dry, free of rashes. ASSESSMENT: Severe Clostridium difficile colitis as well as Escherichia coli bacteriuria. PLAN: She is to continue Rocephin as well as oral vancomycin and IV Flagyl, though we may be able to back off of IV Flagyl as soon as her white count is down to normal. DECEMBER MARTIN HERRERA [place], [place] PROGRESS NOTE NAME: KIRSTY SELBY UNIT #: [id number] ROOM: 422 DOCTOR: JAVIER SALAZAR,DECEMBER BIRTHDATE: [birth year] Cathleen Sloan MD CM:CHANG [phone] DECEMBER JAVIER SALAZAR 08/27/18 0848 interface
--- NOTE | ~2018-08-22 | PR ---
[place], [place] PROGRESS NOTE NAME: KIRSTY SELBY UNIT #: [id number] ROOM: 422 DOCTOR: VINICIO MCKENZIE MD,ANKITA BIRTHDATE: [birth year] DOS: 08/31/2018 The patient is independently seen and examined, olju-xy-kkke encounter, history was confirmed. Physical examination performed. The labs were reviewed. The note done by the medical dermatologist approved. Assessment and management for today's note were personally completed as well. SUBJECTIVE: The patient has been noted comfortable at the present time, resting on the bed. Denies acute shortness of breath. The patient does not have symptoms of coughing or wheezing. The diarrhea continued to resolve progressively as per patient. OBJECTIVE: VITAL SIGNS: For the patient with a normal temperature, respiratory rate 18-76, blood 144/92. Pulse oxygen saturation on 2 liters 95% saturation. HEENT: Examination shows head was atraumatic. Eyes: No icterus. NECK: Supple. CARDIOVASCULAR: S1, S2 audible. IMPRESSION: Resolving acute Clostridium difficile colitis, improving acute respiratory failure. General weakness and fatigue with history of Guillain-[place] syndrome ____ neuromuscular weakness that remains persistent. PLAN OF THERAPY: No changes in the plan of care at this time. Continuation of current plan of management as in progress. Usual care, other supportive plan of therapy and treatments and care. ANKITA MOONEY MD CM:PNTRANS 02 [phone] ANKITA MCKENZIE MD 08/31/181950 interface
--- NOTE | ~2018-08-22 | PR ---
[place], [place] PROGRESS NOTE NAME: KIRSTY SELBY UNIT #: [id number] ROOM: 422 DOCTOR: VINICIO MCKENZIE MD,ANKITA BIRTHDATE: [birth year] DOS: 08/30/2018 SUBJECTIVE: The patient was seen and examined on 08/30/2018 and was noted comfortable at this time without any acute distress. The patient was independently seen and examined in [id number] encounter, history was confirmed. Physical examination performed. Labs were reviewed with the note done by the remote medical coder and was approved. Has not been noted any ongoing acute new respiratory complaints at this time and appeared to be comfortable. The diarrhea seemed to be resolving. Rectal tube was removed. PHYSICAL EXAMINATION: VITAL SIGNS: Normal temperature, respiratory rate 16, heart rate 80, blood pressure 160/97. The pulse oxygen saturation of the patient recorded as 96% on 2 liters nasal cannula. HEENT: Examination shows head was atraumatic. Eyes nonicterus. NECK: Supple. CARDIOVASCULAR: S1, S2 is audible. LUNGS: The patient was noted without any wheezing or crackles. ABDOMEN: Soft and nontender. Bowel sounds present. EXTREMITIES: Without acute edema. IMPRESSION: 1. Stable respiratory status. 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 2. Acute Escherichia coli pneumonia, which is already being treated and the treatment was completed for that. PLAN OF MANAGEMENT: Physical therapy, occupational therapy, medical management of C. diff colitis to be continued. Continue other therapy, plan of management, and care plan. ANKITA MOONEY MD CM:PNTRANS [phone] ANKITA MCKENZIE MD 08/30/18 1321 interface
--- NOTE | ~2018-08-22 | PR ---
[place], [place] PROGRESS NOTE NAME: KIRSTY SELBY UNIT #: [id number] ROOM: 422 DOCTOR: NAVIN JULES DO BIRTHDATE: [birth year] DOS: 08/28/2018 SUBJECTIVE: The patient was seen and evaluated on a general medical floor. The patient is noted comfortable at this time. Still notes some diarrhea with her current C. difficile colitis. The patient denies any acute shortness of breath, wheezing, sputum production or any chest pain. The patient denies any fevers or chills. The patient has noted to be comfortable on 2 liters nasal cannula oxygen. PHYSICAL EXAMINATION: VITAL SIGNS: Temperature 98.2, pulse of 93, blood pressure 136/93, respiratory rate 18, pulse ox 94% on 2 liters nasal cannula. GENERAL: The patient is alert and oriented. No signs of distress. HEENT: Head: Atraumatic, normocephalic. Eyes: PERRLA, nonicteric. NECK: Supple. CARDIOVASCULAR: Regular rate and rhythm. No murmurs, rubs or gallops. LUNGS: Mildly decreased breath sounds bilaterally. No acute wheezing, rales or rhonchi at this time. ABDOMEN: Soft, nontender. Bowel sounds present. EXTREMITIES: No new changes or edema. NEUROLOGIC: Grossly intact. No neurological deficits. ASSESSMENT: Acute Clostridium difficile colitis and resolving acute respiratory failure. PLAN OF MANAGEMENT: Continue oxygen titration to maintain pulse ox above 92%. Continue antibiotics as recommended per Infectious disease specialist for C. diff and current pneumonia. Adjustments will be made based on clinical progression, other plan of care and supportive therapy. Navin Jules DO [place], [place] PROGRESS NOTE NAME: KIRSTY SELBY UNIT #: [id number] ROOM: 422 DOCTOR: NAVIN JULES DO BIRTHDATE: [birth year] ANKITA MOONEY MD CM:PNTRANS [phone] NAVIN JULES DO 08/28/18 1405 interface
--- NOTE | ~2018-08-22 | CON ---
[place], [place] REPORT OF CONSULTATION [id number] UN[facility] #: [id number] ROOM: [facility] DOCTOR: VINICIO MCKENZIE MD,ANKITA BIRTHDATE: [birth year] DOS: 08/23/2018 PULMONARY CRITICAL CARE EVALUATION AND MANAGEMENT CONSULTATION REQUESTED BY: Hospitalist services. REASON FOR CONSULTATION: For assessment of current acute respiratory failure. HISTORY OF PRESENT ILLNESS: This is a 77-year-old white female patient who had been presented to the hospital under care of hospitalist services on 08/23/2018. The patient presented to the Emergency Room from the nursing facility as the patient developed significant acute GI symptoms. She has reported symptoms of nausea, vomiting and diarrhea, which developed acutely. This patient noted constipated about a week. He presented to the Emergency Room, has been noted with respiratory distress as well as its multilumen catheter inserted for the patient. Later, the patient developed increased respiratory distress. The patient required intubation and mechanical ventilation. She has been intubated, started on mechanical ventilation. The patient has been noted awake, as the sedation has been discontinued this morning a few hours later after admission to the hospital. The patient has been previously treated for VRE of the urine as well. She also developed hypotension post-intubation requiring the Levophed administration. A 3 liters of intravenous fluids were also given for this patient for the medical management of hypotension. She has been currently receiving intravenous Zosyn and intravenous Zyvox. The patient was noted awake and alert this morning of assessment, the patient currently intubated, endotracheal tube size #7. PAST MEDICAL HISTORY: 1. She has not been able to give any history. All the history is contained documented is reviewed with the previous medical history record of the patient as the patient was seen in 05/2018 admission as well. She at that time treated for acute GI bleeding and underwent the upper endoscopy for the patient and managed for other medical illnesses. 2. History of Guillain-Rexburg syndrome, which was diagnosed in 04/2018, treated and seen today with hospice for residual weakness of the lower extremity. Still receiving rehabilitation therapy at the nursing facility. 3. Type 2 diabetes mellitus. 4. Osteoarthritis. 5. Hyperlipidemia. 6. Hypothyroidism. 7. Pulmonary embolism, which has been treated with anticoagulation, currently receiving Xarelto. 8. Spinal stenosis of the cervical spine region. 9. Urinary tract infection, VRE, previously treated. SOCIAL HISTORY: The patient is currently a resident nursing facility at [place]. Tobacco use was noted as a teenager, pack of cigarettes per day, but not smoking any cigarettes since 04/2018. She does have one daughter. PAST SURGICAL HISTORY: Noted with no major surgical interventions. [place], [place] REPORT OF CONSULTATION NAME: KIRSTY SELBY UNIT #: [id number] ROOM: [facility] DOCTOR: VINICIO MCKENZIE MD,ANKITA BIRTHDATE: [birth year] FAMILY HISTORY: The patient's family member reported diabetes in the mother. CURRENT MEDICATIONS: Administered were noted use of: 1. IV Protonix. 2. Norepinephrine. 3. Zyvox. 4. Chlorhexidine rinse. 5. Diprivan. 6. Versed. 7. Other p.r.n. medications administered. The patient was also receiving the unfractionated therapeutic heparin this morning. Intravenous fluids at 80 mL normal saline per hour were continued. DRUG ALLERGIES: NOTED WITH ALLERGY TO SULFA DRUGS. PHYSICAL EXAMINATION: GENERAL: A 77-year-old female patient currently intubated on mechanical ventilator. Height 5 feet 2 inches, weight of 139, BMI 34.4. VITAL SIGNS: Normal temperature, respiratory rate of 16 and same on the mechanical ventilator, heart rate of the patient was recorded as 80-72. The blood pressure was recorded as 57/36 as a lowest blood pressure post-intubation and the blood pressure this morning was recorded as 119/84 at 11:00 a.m. The intake and output for the patient: Intake 6000 mL. The output was 3.3650 liters, out of which the NG tube output was 900 mL. The urine output was 2460 mL. Pulse oxygen saturation recorded on the mechanical ventilation as 98% saturation. HEENT: Examination shows head was atraumatic. Eyes nonicterus. NECK: Supple. CARDIOVASCULAR: S1, S2 is audible. LUNGS: Noted without any wheezing or crackles. ABDOMEN: Soft. There was no tenderness. CENTRAL NERVOUS SYSTEM: Hypoactive bowel sounds. MUSCULOSKELETAL: Without acute deformities. SKIN: No lesions or rashes. LABORATORY DATA: CBC that was done on 08/22/2018 in the Emergency Room, WBC count was normal, hemoglobin 10, platelet count were normal. The lactic acid was 4.3 on admission. PT/PTT was done, INR 1.5, PTT 59 for the patient on admission as well. The CMP of 08/22/2018, BUN 21, creatinine was normal. CO2 was 19. Albumin of 2.4. The ESR was noted at 7.0. Urinalysis for the patient of 08/22/2018 showed 2+ leukocyte esterase, 4+ bacteria. Follow up lactic acid 2.2. The troponin normal. Lactic acid elevated again at 4.2. Influenza A and B, nasal washing antigens were negative. Chest x-ray post-intubation was reviewed and it shows evidence of small pleural effusions developed endotracheal tube in appropriate position. CBC of this morning: WBC count elevated 23.9, hemoglobin 10.5 and 34.4, platelet count of 431,000. CMP that was done on 08/23/2018, glucose 240, BUN normal, creatinine normal, potassium 3.2, CO2 is still noted decreased at 16. The CT scan of the head for this patient, which [place], [place] REPORT OF CONSULTATION NAME: KIRSTY SELBY UNIT #: [id number] ROOM: [facility] DOCTOR: VINICIO MCKENZIE MD,[facility] BIRTHDATE: [birth year] was done does not show any acute intracranial abnormalities with chronic changes. The arterial blood gas of that was done this morning on the mechanical ventilator, pH of 7.33, pCO2 of 31, pO2 of 128, 35% oxygen assist control, volume control, mechanical ventilator. Stool for C. diff toxin negative. BMP this morning, normal BUN and creatinine, CO2 was 20. Stool for occult blood was noted as positive. Endotracheal aspirate the patient this morning. The Gram stain, moderate white blood cell, few epithelial cells, rare gram-positive cocci in pairs. Review of the additional radiology data: The CT of the chest with personal review for patient possibility of small focal area of stenosis of the trachea in the mid to lower portion cannot be completely excluded with current assessment of the airways. There was no evidence of pulmonary embolism noted. There was no evidence of acute pulmonary infiltration seen as well. There was no abnormal lymphadenopathy. CT scan of the abdomen and pelvis, which was reported by the radiologist report reported with a distended gallbladder with gallbladder wall thickening, pericholecystic fluid suggestive of acute cholecystitis. Mild concentric wall thickening of the distal descending colon. The patient at the proximal colon was also noted possibility of focal low-grade infection with inflammatory colitis and mild diverticulitis would be considered. Hiatal hernia also was seen more 4 mm nodule in the left upper lobe was noted, which was visible on the current CT scan, not seen in the previous CT scan in 05/2018. IMPRESSION: 1. The patient who has been currently admitted to the hospital, was noted what appears like GI tract symptom for this patient with acute sepsis and septic shock. Whether there is acute cholecystitis, diverticulitis and other abdominal problem remains to be further defined with assessment. 2. The patient with metabolic acidosis. The patient with a non-anion gap related to the current diarrhea as well. 3. The patient with acute respiratory failure related to septic shock is a very likely cause. 4. Rule out focal narrowing of the mid lower portion of the trachea with further direct visualization in the future. 5. Incidental finding of 4 mm nodule left upper lobe significance of that was unknown. 6. Large volume fluid resuscitation. The patient with some fluid over noted with small bilateral pleural effusions. 7. History of Guillain-Rexburg syndrome. The patient with residual weakness of extremities with independent ambulation was not known. PLAN OF MANAGEMENT: The patient given one dose of Lasix. The IV fluids have been decreased. The sedation will remain discontinued. The patient's mental status noted normal. She will be started on CPAP 5, pressure support of 10 for this patient for one hour and arterial blood gas assessment. If the correction of the acidosis noted with adequate oxygenation, she will be considered liberation from mechanical ventilator. Continuation of the bronchodilator had mobilized secretions. Vasopressors to be titrated off with improvement in the hypotension. DVT prophylaxis. Surgical consultation was noted in progress. The patient would be continued on Xarelto unless contraindicated for any [place], [place] REPORT OF CONSULTATION NAME: KIRSTY SELBY UNIT #: [id number] ROOM: [facility] DOCTOR: VINICIO MCKENZIE MD,ANKITA BIRTHDATE: [birth year] bleeding diatheses or other problems if noted. Usual care. Pulmonary embolism noted only small pulmonary embolus of the patient previously. Supportive care therapy, plan of management. Additional treatment changes recommended based on progression of the illness. Nutrition support at this time will be placed on hold for patient until the GI system for the patient was noted normal. The patient remains intubated. She will be started on trophic feedings. The patient does get extubated for the patient to follow the recommendation by the surgical staff for this patient for the nutritional support. Monitor blood cultures and other cultures including the urine as the urinary tract infection was also suspected. The PTT was noted significantly elevated to 250. The heparin remains on hold, which will be completely discontinued for the patient is not needed. Usual care, plan of management and therapies. Total time in pulmonary critical evaluation and management was 45 minutes. ANKITA MOONEY MD CM:CONSTR:REPORT OF CONSULTATION 1517 08/23/18 1815 interface
--- NOTE | ~2018-08-22 | PR ---
[place], [place] PROGRESS NOTE NAME: KIRSTY SELBY UNIT #: [id number] ROOM: 422 DOCTOR: JORGE A NAVIN HAAS BIRTHDATE: [birth year] DOS: 08/30/2018 PULMONOLOGY PROGRESS NOTE SUBJECTIVE: The patient was seen and evaluated on general medical floor. The patient notes continued improvement in her diarrhea. The patient reports that they are awaiting for single room at the longterm, so that she could be discharged. The patient is comfortable at this time. PHYSICAL EXAMINATION: VITAL SIGNS: Temperature 98.6, pulse 84, respiratory rate 18, blood pressure 149/91, pulse ox 96% on 2 liters nasal cannula. GENERAL: The patient is alert and oriented. No signs of distress. HEAD: Atraumatic, normocephalic. EYES: PERRLA, nonicteric. NECK: Supple. CARDIOVASCULAR: Regular rate and rhythm. No murmurs, rubs or gallops. LUNGS: Clear to auscultation bilaterally. ABDOMEN: Soft, nontender. Bowel sounds are present. EXTREMITIES: No new changes or edema. NEUROLOGIC: Grossly intact. No neurological deficits. IMPRESSION: Resolving acute clostridium difficile colitis with resolving acute respiratory failure. PLAN OF MANAGEMENT: The patient is stable for discharge from a Pulmonology standpoint once bed is able to be obtained at longterm. Continue antibiotic recommendations per ID specialist for C. diff and supportive therapy, plan of management. Continue to titrate oxygen to maintain pulse ox above 92%. Navin Hamilton DO [place], [place] PROGRESS NOTE NAME: KIRSTY SELBY UNIT #: [id number] ROOM: 422 DOCTOR: JORGE A NAVIN BIRTHDATE: [birth year] ANKITA MOONEY MD CM:PNTRANS [id number] NAVIN HAMILTON DO 08/30/[id number] interface
--- NOTE | ~2018-08-22 | PR ---
[place], [place] PROGRESS NOTE NAME: KIRSTY SELBY UNIT #: [id number] ROOM: 422 DOCTOR: ANKITA LOPEZ MD BIRTHDATE: [birth year] DOS: 08/27/2018 PULMONARY PROGRESS NOTE SUBJECTIVE: The patient was seen and examined on 08/27/2018. She has been noted comfortable at this time, still noted with the diarrhea with C. diff colitis, which has been managed. Denies symptoms of acute shortness of breath, coughing, chest pain, sputum expectoration in the last 24 hours. The patient has not been reported symptoms of fever or chills. She has been continued on oxygen supplementation 2 liters nasal cannula, which has decreased from 3 liters previously. PHYSICAL EXAMINATION: VITAL SIGNS: For the patient which are recorded showed normal temperature, respiratory rate 18, heart rate of 87, blood pressure 151/95. Pulse oxygen saturation is 97% on 2 liters nasal cannula. HEENT: Head was atraumatic. Eyes nonicterus. NECK: Supple. CARDIOVASCULAR: S1, S2 audible. LUNGS: The patient noted without any wheezing or crackles at the present time. The breaths are noted decreased in the lower portion of the lungs bilaterally. ABDOMEN: Soft, nontender, bowel sounds present. EXTREMITIES: No new changes. IMPRESSION: 1. The patient with Clostridium colitis with generalized weakness and fatigue with history of past diagnosis of Guillain-Lynn syndrome a few months ago. 2. Resolving acute respiratory failure. PLAN OF MANAGEMENT: Titrate oxygen supplementation to maintain pulse ox 92% or greater. Continue the pneumonia management, E. coli of the patient on a total of 5-6 days of antibiotics as well. Other supportive therapy, plan of management, care. [place], [place] PROGRESS NOTE NAME: KIRSTY SELBY UNIT #: [id number] ROOM: 422 DOCTOR: ANKITA LOPEZ MD BIRTHDATE: [birth year] ANKITA MOONEY MD CM:PNTRANS [id number] ANKITA MCKENZIE MD 08/28/184 interface
[~2018-08-22 18:06] MED LIST changes: +AUGMENTIN 875875 MG PO; +BETHANECHOL CHL25 MG PO; +BIOFREEZE118 ML T; +CARAFATE1 G1 PO; +CIPRO500 MG PO; +Carafate1 GM/10 ML PO; +ENOXAPARIN80 MG/0.2 SC; +FLOMAX0.4 MG PO; +GRALISE300 M1 PO; +IMODIUM A-D2 M2 PO; +K-TAB20 MEQ PO; +LIDODERM1 EACH T; +Lovenox80 MG/0.8 SC; +MIRALAX POWDER255 G1 PO; +MOM30 M1 PO; +NATURE'S BLEND F1 MG PO; +NEURONTIN300 MG PO; +NORCO 5-325 TA1 EACH PO; +PROTONIX40 MG PO; +SYNTHROID25 MCG PO; +Synthroid,Levo25 MCG PO; +TYLENOL325 M1 PO; +VITAMIN D34000 UNIT PO; +VOLTAREN100 GM T; +XALATAN 0.005%2.5 ML INTRAOC; +XARELTO20 M1 PO; +ZOFRAN ODT8 M1 PO
[2018-08-22 18:37] LABS: BASO % 0.3 % (0.0-1.0); EOS # 0.1 10*3/uL (0.0-0.4); EOS % 1.1 % (1.0-4.0); HEMATOCRIT 32.9 % (37.0-47.0); LYMPH # 3.7 10*3/uL (1.3-4.4); LYMPH % 37.2 % (27.0-41.0); MEAN CELL VOLUME 95.1 fl (81.0-99.0); MEAN CORPUSCULAR HGB 28.9 pg (27.0-31.0); MEAN CORPUSCULAR HGB CONC 30.4 g/dl (33.0-37.0); MEAN PLATELET VOLUME 10.2 fl (9.6-12.3); MONO # 0.4 10*3/uL (0.1-1.0); MONO % 3.8 % (3.0-9.0); NEUT # 5.7 10*3/uL (2.3-7.9); PLATELET COUNT AUTOMATED 346 10*3/uL (130-400); RED BLOOD COUNT 3.46 10*6/uL (4.10-5.10); RED CELL DISTRI WIDTH 15.5 % (0-14.5); WHITE BLOOD COUNT 9.9 10*3/uL (4.8-10.8)
[2018-08-22 18:46] LABS: ACT PARTIAL THROMBO TIME 59.7 SECONDS (20.8-31.5); INTERNATIONAL NORM RATIO 1.5 (2.0-3.5)
[2018-08-22 18:53] LABS: ALBUMIN 2.4 gm/dl (3.1-4.5); ALKALINE PHOSPHATASE 71 U/L (45-117); BUN 21 mg/dl (7-24); CHLORIDE 108 mmol/L (98-107); LIPASE 174 U/L (73-393); POTASSIUM 3.9 mmol/L (3.5-5.1); SGOT/AST 18 IU/L (3-35); SGPT/ALT 16 U/L (12-78); SODIUM 140 mmol/L (136-145); TOTAL PROTEIN 5.6 gm/dL (6.4-8.2)
[2018-08-22 18:57] LABS: TROPONIN I < 0.015 ng/ml (<0.045)
[2018-08-22 20:44] LABS: BILIRUBIN NEGATIVE (NEGATIVE); BLOOD 1+ (NEGATIVE); CLARITY CLOUDY (CLEAR); COLOR YELLOW (YELLOW); GLUCOSE NEGATIVE (NEGATIVE); KETONE NEGATIVE (NEGATIVE); LEUKO ESTERASE 2+ (NEGATIVE); NITRITE NEGATIVE (NEGATIVE); PH 5.5 (5.0-9.0); UROBILINOGEN 0.2 E.U./dl (0.2-1.0)
[2018-08-22 20:51] LABS: BACTERIA 4+; WBC TNTC wbc/hpf (0-5)
[2018-08-23] VITALS (75 sets, daily range): BP systolic 72–144; BP diastolic 50–91
[2018-08-23 01:49] LABS: HEMATOCRIT 34.4 % (37.0-47.0); HEMOGLOBIN 10.5 g/dl (12.0-16.0); MEAN CELL VOLUME 94.5 fl (81.0-99.0); MEAN CORPUSCULAR HGB 28.8 pg (27.0-31.0); MEAN CORPUSCULAR HGB CONC 30.5 g/dl (33.0-37.0); MEAN PLATELET VOLUME 10.5 fl (9.6-12.3); PLATELET COUNT AUTOMATED 431 10*3/uL (130-400); RED BLOOD COUNT 3.64 10*6/uL (4.10-5.10); RED CELL DISTRI WIDTH 15.3 % (0-14.5); WHITE BLOOD COUNT 23.9 10*3/uL (4.8-10.8)
[2018-08-23 01:59] LABS: ACT PARTIAL THROMBO TIME 57.5 SECONDS (20.8-31.5); INTERNATIONAL NORM RATIO 1.3 (2.0-3.5)
[2018-08-23 02:05] LABS: ALBUMIN 2.2 gm/dl (3.1-4.5); ALKALINE PHOSPHATASE 81 U/L (45-117); BUN 19 mg/dl (7-24); CHLORIDE 111 mmol/L (98-107); CREATININE 0.85 mg/dL (0.55-1.02); PHOSPHOROUS 2.7 mg/dL (2.5-4.9); POTASSIUM 3.2 mmol/L (3.5-5.1); SGOT/AST 46 IU/L (3-35); SGPT/ALT 28 U/L (12-78); SODIUM 144 mmol/L (136-145); TOTAL PROTEIN 5.4 gm/dL (6.4-8.2); TROPONIN I 0.024 ng/ml (<0.045)
[2018-08-23 02:06] LABS: FREE T4 1.27 ng/dl (0.76-1.46)
[2018-08-23 02:10] LABS: TOTAL CELLS COUNTED 100 #CELLS
[2018-08-23 02:11] LABS: BURR CELLS MODERATE; PLATELET SUFFICIENCY NORMAL (NORMAL); SCHISTOCYTES FEW
[2018-08-23 02:16] LABS: ABG BASE EXCESS -12.1 mmol/L (-2.0-2.0); ABG HCO3 13.5 mmol/l (22-26); ABG O2 SATURATION 97.5 % (95-97); ARTERIAL BLOOD GAS PCO2 26.8 mmHg (35-45); ARTERIAL BLOOD GAS PH 7.304 (7.35-7.45)
[2018-08-23 03:36] LABS: HEMATOCRIT 33.9 % (37.0-47.0); HEMOGLOBIN 10.4 g/dl (12.0-16.0); MEAN CELL VOLUME 93.6 fl (81.0-99.0); MEAN CORPUSCULAR HGB 28.7 pg (27.0-31.0); MEAN CORPUSCULAR HGB CONC 30.7 g/dl (33.0-37.0); MEAN PLATELET VOLUME 10.1 fl (9.6-12.3); PLATELET COUNT AUTOMATED 428 10*3/uL (130-400); RED BLOOD COUNT 3.62 10*6/uL (4.10-5.10); RED CELL DISTRI WIDTH 15.4 % (0-14.5); WHITE BLOOD COUNT 23.3 10*3/uL (4.8-10.8)
[2018-08-23 03:57] LABS: BURR CELLS MODERATE; PLATELET SUFFICIENCY NORMAL (NORMAL); SCHISTOCYTES FEW; TOTAL CELLS COUNTED 100 #CELLS
[2018-08-23 04:02] LABS: ALBUMIN 2.2 gm/dl (3.1-4.5); ALKALINE PHOSPHATASE 79 U/L (45-117); BUN 18 mg/dl (7-24); CHLORIDE 109 mmol/L (98-107); CREATININE 0.85 mg/dL (0.55-1.02); POTASSIUM 2.9 mmol/L (3.5-5.1); SGOT/AST 39 IU/L (3-35); SGPT/ALT 30 U/L (12-78); SODIUM 142 mmol/L (136-145); TOTAL PROTEIN 5.3 gm/dL (6.4-8.2)
[2018-08-23] MEDS ORDERED: URECHOLINE25 MG PO (04:03)
[2018-08-23 07:33] LABS: ABG HCO3 16.5 mmol/l (22-26); ABG O2 SATURATION 97.8 % (95-97); ARTERIAL BLOOD GAS PCO2 31.2 mmHg (35-45); ARTERIAL BLOOD GAS PH 7.336 (7.35-7.45)
[2018-08-23 07:35] LABS: ABG BASE EXCESS -8.3 mmol/L (-2.0-2.0)
[2018-08-23 09:41] LABS: HEMATOCRIT 34.3 % (37.0-47.0); HEMOGLOBIN 10.7 g/dl (12.0-16.0); MEAN CELL VOLUME 93.5 fl (81.0-99.0); MEAN CORPUSCULAR HGB 29.2 pg (27.0-31.0); MEAN CORPUSCULAR HGB CONC 31.2 g/dl (33.0-37.0); MEAN PLATELET VOLUME 10.2 fl (9.6-12.3); PLATELET COUNT AUTOMATED 417 10*3/uL (130-400); RED BLOOD COUNT 3.67 10*6/uL (4.10-5.10); RED CELL DISTRI WIDTH 15.4 % (0-14.5); WHITE BLOOD COUNT 20.6 10*3/uL (4.8-10.8)
[2018-08-23 09:54] LABS: BUN 16 mg/dl (7-24); CHLORIDE 112 mmol/L (98-107); CREATININE 0.74 mg/dL (0.55-1.02); POTASSIUM 3.7 mmol/L (3.5-5.1); SODIUM 144 mmol/L (136-145)
[2018-08-23 10:02] LABS: ATYPICAL LYMPHS 2 % (0-0); PLATELET SUFFICIENCY HIGH (NORMAL); TOTAL CELLS COUNTED 100 #CELLS
[2018-08-23 10:03] LABS: ACANTHOCYTES FEW; BURR CELLS FEW; POLYCHROMASIA SLIGHT
[2018-08-23 13:10] LABS: ABG HCO3 16.6 mmol/l (22-26); ABG O2 SATURATION 98.5 % (95-97); ARTERIAL BLOOD GAS PCO2 26.4 mmHg (35-45); ARTERIAL BLOOD GAS PH 7.415 (7.35-7.45)
[2018-08-23 13:11] LABS: ABG BASE EXCESS -6.5 mmol/L (-2.0-2.0)
[2018-08-23] MEDS ORDERED: BIOFREEZE118 ML T (16:32)
[2018-08-23] MEDS ORDERED: GLUCAGON EMERGEN1 M1 SQ (16:40)
[2018-08-24] VITALS (38 sets, daily range): BP systolic 90–130; BP diastolic 58–94
[2018-08-24 06:17] LABS: BASO % 0.1 % (0.0-1.0); EOS # 0.1 10*3/uL (0.0-0.4); EOS % 0.4 % (1.0-4.0); LYMPH % 14.5 % (27.0-41.0); MEAN CELL VOLUME 91.1 fl (81.0-99.0); MEAN CORPUSCULAR HGB 28.6 pg (27.0-31.0); MEAN CORPUSCULAR HGB CONC 31.4 g/dl (33.0-37.0); MEAN PLATELET VOLUME 10.4 fl (9.6-12.3); MONO # 1.1 10*3/uL (0.1-1.0); MONO % 7.9 % (3.0-9.0); NEUT # 10.5 10*3/uL (2.3-7.9); NEUT % 76.6 % (47.0-73.0); PLATELET COUNT AUTOMATED 332 10*3/uL (130-400); RED CELL DISTRI WIDTH 15.4 % (0-14.5); WHITE BLOOD COUNT 13.8 10*3/uL (4.8-10.8)
[2018-08-24 06:18] LABS: HEMATOCRIT 25.5 % (37.0-47.0)
[2018-08-24 06:34] LABS: ALBUMIN 1.9 gm/dl (3.1-4.5); ALKALINE PHOSPHATASE 65 U/L (45-117); BUN 13 mg/dl (7-24); CHLORIDE 109 mmol/L (98-107); CREATININE 0.58 mg/dL (0.55-1.02); SGOT/AST 21 IU/L (3-35); SGPT/ALT 17 U/L (12-78); SODIUM 141 mmol/L (136-145); TOTAL PROTEIN 4.3 gm/dL (6.4-8.2)
[2018-08-25] VITALS: BP 118/88
[2018-08-25 04:00] VITALS: BP 137/92
[2018-08-25 06:37] LABS: BASO % 0.3 % (0.0-1.0); EOS # 0.3 10*3/uL (0.0-0.4); EOS % 2.4 % (1.0-4.0); HEMATOCRIT 26.3 % (37.0-47.0); HEMOGLOBIN 8.3 g/dl (12.0-16.0); LYMPH # 1.7 10*3/uL (1.3-4.4); LYMPH % 14.5 % (27.0-41.0); MEAN CELL VOLUME 92.6 fl (81.0-99.0); MEAN CORPUSCULAR HGB 29.2 pg (27.0-31.0); MEAN CORPUSCULAR HGB CONC 31.6 g/dl (33.0-37.0); MEAN PLATELET VOLUME 10.2 fl (9.6-12.3); MONO # 0.8 10*3/uL (0.1-1.0); MONO % 7.1 % (3.0-9.0); NEUT # 8.7 10*3/uL (2.3-7.9); NEUT % 75.2 % (47.0-73.0); PLATELET COUNT AUTOMATED 317 10*3/uL (130-400); RED BLOOD COUNT 2.84 10*6/uL (4.10-5.10); RED CELL DISTRI WIDTH 15.6 % (0-14.5); WHITE BLOOD COUNT 11.6 10*3/uL (4.8-10.8)
[2018-08-25 07:01] LABS: BUN 8 mg/dl (7-24); CHLORIDE 111 mmol/L (98-107); CREATININE 0.31 mg/dL (0.55-1.02); POTASSIUM 3.4 mmol/L (3.5-5.1); SODIUM 142 mmol/L (136-145)
[2018-08-25 08:00] VITALS: BP 143/96
[2018-08-25 12:00] VITALS: BP 132/92
[2018-08-25 16:00] VITALS: BP 137/83
[2018-08-25 20:00] VITALS: BP 150/88
[2018-08-26] VITALS: BP 140/88
[2018-08-26 06:10] LABS: BASO % 0.2 % (0.0-1.0); EOS # 0.2 10*3/uL (0.0-0.4); EOS % 2.1 % (1.0-4.0); HEMATOCRIT 26.6 % (37.0-47.0); HEMOGLOBIN 8.3 g/dl (12.0-16.0); LYMPH # 1.7 10*3/uL (1.3-4.4); LYMPH % 17.5 % (27.0-41.0); MEAN CELL VOLUME 91.7 fl (81.0-99.0); MEAN CORPUSCULAR HGB 28.6 pg (27.0-31.0); MEAN CORPUSCULAR HGB CONC 31.2 g/dl (33.0-37.0); MEAN PLATELET VOLUME 10.1 fl (9.6-12.3); MONO # 0.6 10*3/uL (0.1-1.0); MONO % 6.2 % (3.0-9.0); NEUT # 7.1 10*3/uL (2.3-7.9); NEUT % 73.3 % (47.0-73.0); PLATELET COUNT AUTOMATED 324 10*3/uL (130-400); RED CELL DISTRI WIDTH 15.2 % (0-14.5); WHITE BLOOD COUNT 9.6 10*3/uL (4.8-10.8)
[2018-08-26 06:28] LABS: BUN 6 mg/dl (7-24); CHLORIDE 110 mmol/L (98-107); CREATININE 0.33 mg/dL (0.55-1.02); POTASSIUM 3.5 mmol/L (3.5-5.1); SODIUM 142 mmol/L (136-145)
[2018-08-26 08:00] VITALS: BP 155/95
[2018-08-26 12:00] VITALS: BP 157/98
[2018-08-26 13:00] VITALS: BP 140/90
[2018-08-26 16:00] VITALS: BP 159/104
[2018-08-26] MEDS ORDERED: IMODIUM A-D2 M2 PO (20:16)
[2018-08-26 22:00] VITALS: BP 158/100
[2018-08-27] VITALS: BP 151/95
[2018-08-27 06:52] LABS: BASO % 0.2 % (0.0-1.0); EOS # 0.3 10*3/uL (0.0-0.4); HEMATOCRIT 28.2 % (37.0-47.0); HEMOGLOBIN 9.1 g/dl (12.0-16.0); LYMPH # 2.1 10*3/uL (1.3-4.4); LYMPH % 25.5 % (27.0-41.0); MEAN CELL VOLUME 90.1 fl (81.0-99.0); MEAN CORPUSCULAR HGB 29.1 pg (27.0-31.0); MEAN CORPUSCULAR HGB CONC 32.3 g/dl (33.0-37.0); MONO # 0.6 10*3/uL (0.1-1.0); MONO % 7.5 % (3.0-9.0); NEUT # 5.1 10*3/uL (2.3-7.9); NEUT % 62.3 % (47.0-73.0); PLATELET COUNT AUTOMATED 358 10*3/uL (130-400); RED BLOOD COUNT 3.13 10*6/uL (4.10-5.10); RED CELL DISTRI WIDTH 15.3 % (0-14.5); WHITE BLOOD COUNT 8.2 10*3/uL (4.8-10.8)
[2018-08-27 07:10] LABS: BUN 3 mg/dl (7-24); CHLORIDE 109 mmol/L (98-107); CREATININE 0.33 mg/dL (0.55-1.02); POTASSIUM 3.1 mmol/L (3.5-5.1); SODIUM 143 mmol/L (136-145)
[2018-08-27 08:00] VITALS: BP 137/92
[2018-08-27 12:00] VITALS: BP 127/97
[2018-08-27 16:00] VITALS: BP 106/91
[2018-08-27 20:00] VITALS: BP 93/71
[2018-08-28] VITALS: BP 119/79
[2018-08-28 06:35] LABS: BUN 3 mg/dl (7-24); CHLORIDE 109 mmol/L (98-107); CREATININE 0.44 mg/dL (0.55-1.02); POTASSIUM 3.8 mmol/L (3.5-5.1); SODIUM 142 mmol/L (136-145)
[2018-08-28 08:00] VITALS: BP 136/93
[2018-08-28 12:00] VITALS: BP 132/94
[2018-08-28 16:00] VITALS: BP 140/89
[2018-08-28 20:00] VITALS: BP 94/58
[2018-08-29] VITALS: BP 126/83
[2018-08-29 08:00] VITALS: BP 123/77
[2018-08-29 12:00] VITALS: BP 131/69
[2018-08-29 16:00] VITALS: BP 129/74
[2018-08-29 20:00] VITALS: BP 118/84
[2018-08-30] VITALS: BP 142/92
[2018-08-30 08:00] VITALS: BP 149/91
[2018-08-30 12:00] VITALS: BP 160/97
[2018-08-30 16:00] VITALS: BP 139/85
[2018-08-30 20:00] VITALS: BP 131/88
[2018-08-31] VITALS: BP 141/85
[2018-08-31 08:00] VITALS: BP 144/92
[2018-08-31 12:00] VITALS: BP 151/82
[2018-08-31 16:00] VITALS: BP 144/88
[2018-08-31 20:00] VITALS: BP 138/95
[2018-09-01] VITALS: BP 120/79
[2018-09-01 08:00] VITALS: BP 133/92
[2018-09-01 12:00] VITALS: BP 148/95
[2018-09-01 16:00] VITALS: BP 136/87
[2018-09-01 20:00] VITALS: BP 135/88
[2018-09-02] VITALS: BP 145/88
[2018-09-02 08:00] VITALS: BP 133/85
[2018-09-02 12:00] VITALS: BP 146/93
[2018-09-02 16:00] VITALS: BP 138/94
[2018-09-02 20:00] VITALS: BP 141/81
[2018-09-03] VITALS: BP 157/96
[2018-09-03 08:00] VITALS: BP 128/80
[2018-09-03 12:00] VITALS: BP 127/79
[2018-09-03 16:00] VITALS: BP 100/66
[2018-09-03 20:00] VITALS: BP 133/70
[2018-09-04] VITALS: BP 143/81
[2018-09-04 08:00] VITALS: BP 114/78
[2018-09-04] MEDS ORDERED: VANCOMYCIN250 MG/2.5 PO (10:17)
[2018-09-04] MEDS ORDERED: LOSARTAN POTASS50 M1 PO (10:17)
[2018-09-04] MEDS ORDERED: AMINOPHYLLIN200 MG PO (10:17)
[2018-09-04] MEDS ORDERED: NORCO 5-325 TA1 EACH PO (10:17)
== END 2018-09-04 11:11 | disposition other institution (70) | DRG 871 ==
LOC: ED 18:06 → ICCU 08-23 00:14 → 4E 08-25 14:12
PROVIDERS: Emergency Medicine; Internal Medicine; Internal Medicine Critical Care Medicine; Registered Nurse; Student in an Organized Health Care Education/Training Program
PROC: 0BH17EZ Insertion of Endotracheal Airway into Trachea, Via Natural or Artificial Opening (ICD-10-PCS; principal; 2018-08-22)
PROC: 02HV33Z Insertion of Infusion Device into Superior Vena Cava, Percutaneous Approach (ICD-10-PCS; principal; 2018-08-22)
PROC: 5A1935Z Respiratory Ventilation, Less than 24 Consecutive Hours (ICD-10-PCS; principal; 2018-08-22)
PROC: B548ZZA Ultrasonography of Superior Vena Cava, Guidance (ICD-10-PCS; principal; 2018-08-22)
DX: A41.9 Sepsis, unspecified organism (principal); R65.21 Severe sepsis with septic shock; E43 Unspecified severe protein-calorie malnutrition; J96.00 Acute respiratory failure, unspecified whether with hypoxia or hypercapnia; A04.72 Enterocolitis due to Clostridium difficile, not specified as recurrent; N39.0 Urinary tract infection, site not specified; K81.0 Acute cholecystitis; G61.0 Guillain-Barre syndrome; D68.59 Other primary thrombophilia; D68.9 Coagulation defect, unspecified; E87.2 Acidosis; J90 Pleural effusion, not elsewhere classified; E83.42 Hypomagnesemia; E87.6 Hypokalemia; E83.41 Hypermagnesemia; E66.9 Obesity, unspecified; B96.20 Unspecified Escherichia coli [E. coli] as the cause of diseases classified elsewhere; R00.1 Bradycardia, unspecified; T68.XXXA Hypothermia, initial encounter; R74.0 Nonspecific elevation of levels of transaminase and lactic acid dehydrogenase [LDH]; R91.8 Other nonspecific abnormal finding of lung field; D47.3 Essential (hemorrhagic) thrombocythemia; E87.8 Other disorders of electrolyte and fluid balance, not elsewhere classified; E11.65 Type 2 diabetes mellitus with hyperglycemia; E78.5 Hyperlipidemia, unspecified; M19.90 Unspecified osteoarthritis, unspecified site; I10 Essential (primary) hypertension; M48.02 Spinal stenosis, cervical region; K44.9 Diaphragmatic hernia without obstruction or gangrene; K57.50 Diverticulosis of both small and large intestine without perforation or abscess without bleeding; D64.9 Anemia, unspecified; E03.9 Hypothyroidism, unspecified; M85.80 Other specified disorders of bone density and structure, unspecified site; M51.36 Other intervertebral disc degeneration, lumbar region; M51.34 Other intervertebral disc degeneration, thoracic region; D18.09 Hemangioma of other sites; E53.8 Deficiency of other specified B group vitamins; M25.511 Pain in right shoulder; M25.512 Pain in left shoulder; M62.81 Muscle weakness (generalized); T36.95XA Adverse effect of unspecified systemic antibiotic, initial encounter; T50.2X5A Adverse effect of carbonic-anhydrase inhibitors, benzothiadiazides and other diuretics, initial encounter; Y92.89 Other specified places as the place of occurrence of the external cause; Z86.711 Personal history of pulmonary embolism; Z87.440 Personal history of urinary (tract) infections; Z88.2 Allergy status to sulfonamides; Z83.3 Family history of diabetes mellitus; Z87.891 Personal history of nicotine dependence; Z79.899 Other long term (current) drug therapy; Z87.11 Personal history of peptic ulcer disease; Z68.34 Body mass index [BMI] 34.0-34.9, adult

== ENCOUNTER → 2019-04-17 | Outpatient (CLI) | payer MEDICARE, OTHER, MEDICAID ==
[~2019-04-17] MED LIST changes: +AMINOPHYLLIN200 MG PO; +CYCLOBENZAPRINE5 M3 PO; +GABAPENTIN400 MG PO; +GLUCAGON EMERGEN1 M1 SQ; +LOSARTAN POTASS50 M1 PO; +URECHOLINE25 MG PO; +VANCOMYCIN250 MG/2.5 PO
== END | disposition home or self-care (01) ==
LOC: CARD 09:19
DX: I31.3 Pericardial effusion (noninflammatory) (principal); I51.7 Cardiomegaly; I69.30 Unspecified sequelae of cerebral infarction; G95.9 Disease of spinal cord, unspecified; Z79.899 Other long term (current) drug therapy

== ENCOUNTER 2019-06-07 08:18 | Observation (INO) | payer MEDICARE, OTHER, MEDICAID ==
[~2019-06-07] VITALS: Ht 152.4 cm; Wt 59.6 kg
[2019-06-07] VITALS (7 sets, daily range): BP systolic 100–139; BP diastolic 58–74
--- NOTE | ~2019-06-07 | EKG ---
[place], [place] ELECTROCARDIOGRAM REPORT NAME: KIRSTY SELBY UNIT #: [id number] ROOM: 419 DOCTOR: JESSICA DRAFT REPORT BIRTHDATE: [birth year] [facility] Test Date: 2019-06-07 Test Time: 14:44:06 Pat Name: KIRSTY SELBY Department: Room: 419 Gender: F Nutrition Tech: Olesya Gregory : 1940 Requested By: CHLOE SUERO Order Number: [id number] Reading MD: Adriana Christina MD Measurements Intervals [place] Rate: 69 P: 56 FL: 155 QRS: -26 QRSD: 105 T: 41 QT: 417 QTc: 447 Interpretive Statements Sinus rhythm Borderline left axis deviation Abnormal R-wave progression, late transition Compared to ECG 08/22/2018 18:28:14 No significant changes Electronically Signed On 06-09-2019 7:45:16 PDT by Adriana Christina MD CM:EKGRPT:ELECTROCARDIOGRAM REPORT [id number] 0745 CHLOE VALLEJO DRAFT REPORT CHLOE SUERO DO
--- NOTE | ~2019-06-07 | EKG ---
[place], [place] ELECTROCARDIOGRAM REPORT NAME: KIRSTY SELBY UNIT #: [id number] ROOM: 419 DOCTOR: JESSICA DRAFT REPORT BIRTHDATE: [birth year] [facility] Test Date: 2019-06-07 Test Time: 11:26:52 Pat Name: KIRSTY SELBY Department: Room: 419 Gender: F Child Psychiatrist: Olesya Gregory : 1940 Requested By: CHLOE SUERO Order Number: [id number] Reading MD: Adriana Christina MD Measurements Intervals [place] Rate: 63 P: 41 PA: 136 QRS: -17 QRSD: 108 T: 23 QT: 428 QTc: 439 Interpretive Statements Sinus rhythm Borderline left axis deviation Consider anterior infarct Baseline wander in lead(s) V2 Compared to ECG 08/22/2018 18:28:14 Myocardial infarct finding now present Electronically Signed On 06-09-2019 7:44:59 PDT by Adriana Christina MD CM:EKGRPT:ELECTROCARDIOGRAM REPORT [id number] 0744 CHLOE VALLEJO DRAFT REPORT CHLOE SUERO DO
--- NOTE | ~2019-06-07 | EKG ---
[place], [place] ELECTROCARDIOGRAM REPORT NAME: KIRSTY SELBY UNIT #: [id number] ROOM: 419 DOCTOR: JESSICA DRAFT REPORT BIRTHDATE: [birth year] [facility] Test Date: 2019-06-07 Test Time: 08:22:24 Pat Name: KIRSTY SELBY Department: Room: 419 Gender: F Senior Scheduler: : 1940 Requested By: CHLOE SUERO Order Number: [id number] Reading MD: Adriana Christina MD Measurements Intervals [place] Rate: 74 P: 50 LA: 150 QRS: -16 QRSD: 100 T: 5 QT: 407 QTc: 452 Interpretive Statements Sinus rhythm Borderline left axis deviation Probable anterior infarct, age indeterminate Compared to ECG 08/22/2018 18:28:14 Myocardial infarct finding now present Electronically Signed On 06-09-2019 7:44:48 PDT by Adriana Christina MD CM:EKGRPT:ELECTROCARDIOGRAM REPORT 1 0744 CHLOE VALLEJO DRAFT REPORT CHLOE SUERO DO
[~2019-06-07 08:18] MED LIST changes: -CYCLOBENZAPRINE5 M3 PO; -GABAPENTIN400 MG PO
[2019-06-07 08:42] LABS: BASO % 0.3 % (0.0-1.0); EOS # 0.3 10*3/uL (0.0-0.4); EOS % 3.4 % (1.0-4.0); HEMATOCRIT 29.5 % (37.0-47.0); HEMOGLOBIN 9.1 g/dl (12.0-16.0); LYMPH # 2.3 10*3/uL (1.3-4.4); LYMPH % 30.6 % (27.0-41.0); MEAN CELL VOLUME 94.6 fl (81.0-99.0); MEAN CORPUSCULAR HGB 29.2 pg (27.0-31.0); MEAN CORPUSCULAR HGB CONC 30.8 g/dl (33.0-37.0); MEAN PLATELET VOLUME 9.6 fl (9.6-12.3); MONO # 0.5 10*3/uL (0.1-1.0); MONO % 7.3 % (3.0-9.0); NEUT # 4.3 10*3/uL (2.3-7.9); NEUT % 57.9 % (47.0-73.0); PLATELET COUNT AUTOMATED 321 10*3/uL (130-400); RED BLOOD COUNT 3.12 10*6/uL (4.10-5.10); RED CELL DISTRI WIDTH 13.3 % (0-14.5); WHITE BLOOD COUNT 7.4 10*3/uL (4.8-10.8)
--- NOTE | 2019-06-07 08:52 | NUR ---
PAIN HAS RETURNED TO CHEST, NOW ON RT SIDE. DR SUERO NOTIFIED.
[2019-06-07 08:58] LABS: LIPASE 204 U/L (73-393)
[2019-06-07 08:59] LABS: ACT PARTIAL THROMBO TIME 28.9 SECONDS (20.0-32.1); ALBUMIN 2.6 gm/dl (3.1-4.5); ALKALINE PHOSPHATASE 55 U/L (45-117); BUN 38 mg/dl (7-24); CHLORIDE 105 mmol/L (98-107); SGOT/AST 12 IU/L (3-35); SGPT/ALT 13 U/L (12-78); SODIUM 140 mmol/L (136-145); TOTAL PROTEIN 6.1 gm/dL (6.4-8.2)
[2019-06-07 09:00] LABS: TROPONIN I < 0.015 ng/ml (<0.045)
--- NOTE | 2019-06-07 09:34 | NUR ---
RESTING IN BED, EYES CLOSED. TELLS ME THAT FENTANYL EFFECTIVE FOR PAIN IN CHEST. PT IS VERY SENSITIVE TO TOUCH ALL OVER, FAMILY TELLS ME THAT PT HAS HAD CHRONIC ALL OVER BODY PAIN FOR ABOUT 1 YEAR.
--- NOTE | 2019-06-07 09:39 | NUR ---
PT HAD 250 CC NS BOLUS FROM EMS THAT HAS NOW FINISHED.
--- NOTE | 2019-06-07 10:50 | NUR ---
A 78, admitted to , under the services of CARMEN Anne DO with a diagnosis of CHEST PAIN TO R/O TX. Chief complaint is CHEST PAIN. Patient arrived via ambulance from ER. Monitor applied. Initial assessment completed. Vital signs taken and recorded. CARMEN ANNE DO notified of admission to the unit. Orders received. See assessment for past medical history, medications and allergies. Patient and/or family oriented to unit. [facility]U visitation policy reviewed. Clothing/patient valuable form completed. HERON MCGOVERN
[2019-06-07] MEDS ORDERED: CYCLOBENZAPRINE5 M3 PO (15:54)
[2019-06-07] MEDS ORDERED: NORCO 5-325 TA1 EACH PO (15:54)
[2019-06-07] MEDS ORDERED: GABAPENTIN400 MG PO (15:54)
--- NOTE | 2019-06-07 17:35 | NUR ---
Discharge instructions reviewed with patient/family. Patient receptive and verbalizes understanding. Follow-up care arranged. Written instructions given to patient/family. LUCIANA SIMPSON
--- NOTE | 2019-06-07 17:40 | NUR ---
NELL HERE TO PICK PATIENT UP. REPORT GIVEN TO VELMA AT [facility]. PATIENT OFF FLOOR AT THIS TIME. IV REMOVED, HEART MONITOR REMOVED. BELONGING SENT WITH . [employer]ATE[employer] COMMUNICATIONS ENGINEER GIVEN PATIENT PAPERWORK.
== END 2019-06-07 17:44 | disposition other institution (70) ==
LOC: ED 08:18 → EDHOLD 10:20 → 4E 10:30
PROVIDERS: Emergency Medicine; ADMIT Internal Medicine
DX: R07.89 Other chest pain (principal); G61.0 Guillain-Barre syndrome; E11.9 Type 2 diabetes mellitus without complications; D64.9 Anemia, unspecified; E78.5 Hyperlipidemia, unspecified; E03.9 Hypothyroidism, unspecified; G89.29 Other chronic pain; E83.42 Hypomagnesemia; E43 Unspecified severe protein-calorie malnutrition; E55.9 Vitamin D deficiency, unspecified; Z87.891 Personal history of nicotine dependence

== ENCOUNTER 2019-09-15 16:24 | Inpatient (IN) | payer MEDICARE, OTHER, MEDICAID ==
[~2019-09-15] VITALS: Ht 152.4 cm; Wt 57.5 kg
[2019-09-15] VITALS (29 sets, daily range): BP systolic 65–140; BP diastolic 36–92
[~2019-09-15 16:24] MED LIST changes: +CYCLOBENZAPRINE5 M3 PO; +GABAPENTIN400 MG PO; +MIRALAX POWDER17 G1 PO; -MIRALAX POWDER255 G1 PO; +TESSALON PERLE100 MG PO
[2019-09-15 16:45] LABS: ABG BASE EXCESS -2.9 mmol/L (-2.0-2.0); ARTERIAL BLOOD GAS PH 7.21 (7.35-7.45)
[2019-09-15 17:03] LABS: BASO # 0.1 10*3/uL (0.0-0.1); BASO % 0.2 % (0.0-1.0); EOS # 0.2 10*3/uL (0.0-0.4); EOS % 1.1 % (1.0-4.0); HEMATOCRIT 31.9 % (37.0-47.0); HEMOGLOBIN 9.8 g/dl (12.0-16.0); LYMPH # 2.1 10*3/uL (1.3-4.4); LYMPH % 10.1 % (27.0-41.0); MEAN CELL VOLUME 91.4 fl (81.0-99.0); MEAN CORPUSCULAR HGB 28.1 pg (27.0-31.0); MEAN CORPUSCULAR HGB CONC 30.7 g/dl (33.0-37.0); MEAN PLATELET VOLUME 10.4 fl (9.6-12.3); MONO # 0.6 10*3/uL (0.1-1.0); MONO % 3.1 % (3.0-9.0); NEUT # 17.3 10*3/uL (2.3-7.9); NEUT % 85.1 % (47.0-73.0); PLATELET COUNT AUTOMATED 270 10*3/uL (130-400); RED BLOOD COUNT 3.49 10*6/uL (4.10-5.10); RED CELL DISTRI WIDTH 16.8 % (0-14.5); WHITE BLOOD COUNT 20.4 10*3/uL (4.8-10.8)
[2019-09-15 17:14] LABS: ACT PARTIAL THROMBO TIME 32.4 SECONDS (20.0-32.1)
[2019-09-15 17:21] LABS: ALBUMIN 2.8 gm/dl (3.1-4.5); CREATININE 1.8 mg/dL (0.55-1.02)
[2019-09-15 17:22] LABS: TROPONIN I 0.019 ng/ml (<0.045)
[2019-09-15 17:36] LABS: BILIRUBIN NEGATIVE (NEGATIVE); BLOOD 1+ (NEGATIVE); CLARITY CLOUDY (CLEAR); COLOR YELLOW (YELLOW); GLUCOSE NEGATIVE (NEGATIVE); KETONE NEGATIVE (NEGATIVE); LEUKO ESTERASE 2+ (NEGATIVE); NITRITE NEGATIVE (NEGATIVE); UROBILINOGEN 0.2 E.U./dl (0.2-1.0)
[2019-09-15 17:44] LABS: BACTERIA 2+; EPITHELIAL CELLS 16-20; WBC TNTC wbc/hpf (0-5)
[2019-09-15 17:45] LABS: MUCOUS 3+
--- NOTE | 2019-09-15 19:24 | NUR ---
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
--- NOTE | 2019-09-15 19:32 | NUR ---
LACTIC ACID 4.4 PER LAB
--- NOTE | 2019-09-15 19:40 | NUR ---
PT RETURNED FROM CT.VITALS STABLE.FLU SWAB DONE AND SENT.--MEETA GOODSON RN
--- NOTE | 2019-09-15 20:28 | NUR ---
PT VS STABLE AT THIS TIME. PT ON LOW INTERMITTENT SUCTION. 50ML YELLOW URINE IN DE LA VEGA BAG. WILL CONTINUE TO MONITOR.
--- NOTE | 2019-09-15 20:51 | NUR ---
Pt daughter to nurses desk to give her contact information, Daughters name is uSsan Collier .
--- NOTE | 2019-09-15 21:20 | NUR ---
A 78yr old female, admitted to ICCU, under the services of SAM Woodruff DO with a diagnosis of ASPIRATION OF LOWER RESPIRATORY TRACT,PNEUMONIA, COLITIS, SEPTIC SHOCK, AND ACUTE RESP FAILURE . Chief complaint is vomiting at [facility] and came with respiratory distress. Arrived from ER orally intubated, RIJ MLC in place. Rectal temp 95. Bhavya Hugger applied with continuous rectal temperature probe placed for monitoring. OGT to LIWS. Patient arrived via stretcher from ER. Monitor applied. Initial assessment completed. Vital signs taken and recorded. See assessment for past medical history, medications and allergies. Patient and/or family oriented to unit. [facility] ICCU visitation policy reviewed. Clothing/patient valuable form completed. Patient is paralyzed, no restraints applied. at bedside. EN PLASENCIA
[2019-09-15] MEDS ORDERED: ASPIRIN ADULT L81 M1 PO (21:47)
[2019-09-15] MEDS ORDERED: BACLOFEN5 MG PO (21:49)
[2019-09-15] MEDS ORDERED: NEURONTIN300 MG PO (21:51)
[2019-09-15] MEDS ORDERED: MUCINEX ER600 MG PO (21:53)
[2019-09-15] MEDS ORDERED: Ipratropium Brom3 ML INH (21:55)
[2019-09-15] MEDS ORDERED: LASIX20 MG PO (21:58)
[2019-09-15] MEDS ORDERED: ASPERCREME LID1 EACH T (22:04)
[2019-09-15] MEDS ORDERED: XALATAN 0.005%2.5 ML INTRAOC (22:05)
[2019-09-15] MEDS ORDERED: REMERON15 M2 PO (22:28)
[2019-09-15] MEDS ORDERED: OCUVITE WITH L1 EACH PO (22:29)
[2019-09-15] MEDS ORDERED: PERIDEX118 ML MM (22:30)
[2019-09-15 23:00] LABS: ABG BASE EXCESS -3.4 mmol/L (-2.0-2.0); ARTERIAL BLOOD GAS PH 7.332 (7.35-7.45)
[2019-09-16] VITALS (96 sets, daily range): BP systolic 77–127; BP diastolic 39–101
[2019-09-16 05:21] LABS: HEMATOCRIT 29.2 % (37.0-47.0); MEAN CORPUSCULAR HGB 27.4 pg (27.0-31.0); MEAN CORPUSCULAR HGB CONC 30.8 g/dl (33.0-37.0); MEAN PLATELET VOLUME 10.6 fl (9.6-12.3); PLATELET COUNT AUTOMATED 277 10*3/uL (130-400); RED BLOOD COUNT 3.28 10*6/uL (4.10-5.10); RED CELL DISTRI WIDTH 16.3 % (0-14.5); WHITE BLOOD COUNT 11.8 10*3/uL (4.8-10.8)
[2019-09-16 05:40] LABS: ALBUMIN 2.3 gm/dl (3.1-4.5); CREATININE 1.74 mg/dL (0.55-1.02); FREE T4 1.18 ng/dl (0.76-1.46); PHOSPHOROUS 4.4 mg/dL (2.5-4.9); POTASSIUM 4.5 mmol/L (3.5-5.1); TOTAL PROTEIN 6.2 gm/dL (6.4-8.2)
[2019-09-16 05:45] LABS: THYROID STIM HORMONE (HS) 1.22 uIU/ml (0.358-4.75)
[2019-09-16 05:58] LABS: TOTAL CELLS COUNTED 100 #CELLS
[2019-09-16 05:59] LABS: BURR CELLS FEW; OVALOCYTES FEW; PLATELET SUFFICIENCY NORMAL (NORMAL)
[2019-09-16 06:59] LABS: VITAMIN D, 25-HYDROXY 79.8 ng/mL (30-100)
[2019-09-16 07:59] LABS: ARTERIAL BLOOD GAS PH 7.368 (7.35-7.45)
--- NOTE | 2019-09-16 08:00 | NUR ---
INTUBATED AND SEDATED WITH DIPROVAN AT 20MCG, PT NODS HEAD WHEN ASKED QUESTIONS, DR MOONEY IN TO SEE PT, LEVAPHED TITRAED FOR MAP >65, PT TURNED AND REPOSITIONED, DE LA VEGA PATENT, OGT PLACEMENT CONFIRMED, + BURP WITH AIR BOLUS , RIJ SECURE
--- NOTE | 2019-09-16 09:05 | NUR ---
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 patient is ok to return when medically stable for discharge.
[2019-09-16 12:43] LABS: CREATININE 1.64 mg/dL (0.55-1.02)
[2019-09-16 12:47] LABS: TROPONIN I 0.047 ng/ml (<0.045)
--- NOTE | 2019-09-16 13:10 | NUR ---
PT IS ASSISTED CARE AT [facility]. PT IS CURRENTLY ON VENT. WILL CONTINUE TO FOLLOW.
[2019-09-16 13:39] LABS: ABG BASE EXCESS -0.8 mmol/L (-2.0-2.0); ARTERIAL BLOOD GAS PH 7.396 (7.35-7.45)
--- NOTE | 2019-09-16 13:39 | NUR ---
ID AND DR CONNELLY OFFICE NOTIFIED OF CONSULTS
--- NOTE | 2019-09-16 13:40 | NUR ---
DR LIZAMA CALLED WITH [facility]
--- NOTE | 2019-09-16 15:31 | NUR ---
Return call from Dr. Iyer, updated on patient's BP after fluid bolus. New orders received for NS x 24 hrs and titrate down Levophed. RN informed and orders entered.
--- NOTE | 2019-09-16 17:00 | NUR ---
BP IMPROVED AFTER 1000 FLUID BOLUS +ANOTHER 500 BOLUS PER MARICEL BUT BP FELL LOWER AND HAVE BEEN UNABLE TO DECREASE LEVAPHED FROM 14 MCG
--- NOTE | 2019-09-16 17:44 | NUR ---
RESIDENT UPDATED ON TEMP 103.1 RECTAL, TYLENOL SUPP GIVEN
--- NOTE | 2019-09-16 18:21 | NUR ---
DR MOONEY UPDATED ON RECATL TEMP OF 103.1 AND CRISTINA STEVENSON REMAINS AT 14 MCG
--- NOTE | 2019-09-16 20:12 | NUR ---
1943 RESTING IN BED IN SUPINE POSITION. HOB ELEVATED. SIDE RAILS UP X'S 2. NPO, ET SECURE TO VENT. PULSE OX 100% ON 35% FIO2. OGT INTACT WITH TF MAINTAINED. RIJ MLC INTACT. DIPRVAN, LEVOPHED AND NSS CONT. WRSIT RESTRAINTS INTACT BILATERALALY, CIRCULATION ADEQUATE. DE LA VEGA PATENT AND DRAINING CLEAR YELLOW URINE.
--- NOTE | 2019-09-16 22:10 | NUR ---
2200 RECTAL TEMP ELEVATED. TYLENOL SUPP GIVEN. COMPLETE BED BATH GIVEN AND LINENS CHANGED. WILL MONITOR.
[2019-09-17] VITALS (102 sets, daily range): BP systolic 86–164; BP diastolic 41–99
--- NOTE | 2019-09-17 00:19 | NUR ---
RECTAL TEMP NOW 102.9. DR. COSTELLO NOTIFIED. ORDERS RECEIVED.
--- NOTE | 2019-09-17 01:32 | NUR ---
TYLENOL SUPP GIVEN FOR CONT ELEVATED RECTAL TEMP. WILL CONT TO MONITOR.
--- NOTE | 2019-09-17 02:08 | NUR ---
RECTAL TEMP IS COMING DOWN. 102.2.WILL CONT TO MONITOR.
--- NOTE | 2019-09-17 04:08 | NUR ---
COOLING BLANKET INTACT. RECTAL TEMP IS 100. DIPRIVAN INCREASED TO 30MICS. LEVOPHED GTT BEING TITRATED DOWN FOR IMPROVING BP. SEE INTERVENTION SCREEN.
--- NOTE | 2019-09-17 06:25 | NUR ---
ET SECURE TO VENT. DIPRIVAN AND LEVOPHED MAINTAINED. LEFT ARM CONTRACTED AND R ARM FLACCID. NO WRIST RESTRAINTS ON. DE LA VEGA PATENT. RECTAL TEMP IS 99.3. NO DISTRESS NOTED. CONDITION GUARDED.
[2019-09-17 07:14] LABS: ARTERIAL BLOOD GAS PH 7.391 (7.35-7.45)
[2019-09-17 08:03] LABS: HEMATOCRIT 24.6 % (37.0-47.0); HEMOGLOBIN 7.8 g/dl (12.0-16.0); MEAN CELL VOLUME 87.9 fl (81.0-99.0); MEAN CORPUSCULAR HGB 27.9 pg (27.0-31.0); MEAN CORPUSCULAR HGB CONC 31.7 g/dl (33.0-37.0); MEAN PLATELET VOLUME 9.7 fl (9.6-12.3); PLATELET COUNT AUTOMATED 214 10*3/uL (130-400); WHITE BLOOD COUNT 12.6 10*3/uL (4.8-10.8)
[2019-09-17 08:37] LABS: ALBUMIN 1.8 gm/dl (3.1-4.5); ALKALINE PHOSPHATASE 58 U/L (45-117); CHLORIDE 110 mmol/L (98-107); CREATININE 0.94 mg/dL (0.55-1.02); POTASSIUM 3.1 mmol/L (3.5-5.1); SGOT/AST 37 IU/L (3-35); SGPT/ALT 16 U/L (12-78); SODIUM 141 mmol/L (136-145); TOTAL PROTEIN 5.3 gm/dL (6.4-8.2)
[2019-09-17 08:48] LABS: BUN 22 mg/dl (7-24)
[2019-09-17 08:53] LABS: BURR CELLS FEW; TOTAL CELLS COUNTED 100 #CELLS
[2019-09-17 08:54] LABS: OVALOCYTES FEW; PLATELET SUFFICIENCY NORMAL (NORMAL); POLYCHROMASIA SLIGHT
--- NOTE | 2019-09-17 09:06 | NUR ---
BRONCH DONE AT BEDSIDE BY SURGICAL TEAM - PATIENT TOLERATED WELL. DIPRIVAN DRIP CONTINUES @ 30mcg, LEVOPHED @ 6mcg/min, IVF @ 100. HEEL RAISERS PLACED - LAYLA ON. OGT PLACEMENT CHECKED WITH AIR BOLUS THEN IRRIGATED WITH FREE WATER. ORAL CARE DONE. LT ARM CONTRACTURED, RT FLACCID.
--- NOTE | 2019-09-17 12:01 | NUR ---
Patient updated clinicals faxed to [facility] for review. 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
[2019-09-17 13:30] LABS: BF LYMPHOCYTES 7 %; BF MACROPHAGES 8 %; BF NEUTROPHILS 85 %
--- NOTE | 2019-09-17 13:49 | NUR ---
TYLENOL GIVEN FOR FEVER 101.3 - SLOWLY CONTIUES TO CLIMB
--- NOTE | 2019-09-17 14:07 | NUR ---
PT REMAINS ON VENT. WILL CONTINUE TO FOLLOW.
--- NOTE | 2019-09-17 15:19 | NUR ---
PT RESTING WITH FAMILY AT BEDSIDE
--- NOTE | 2019-09-17 16:00 | NUR ---
BLOOD INFUSING - COOLING BLANKET IN PLACE - FAMILY AWARE OF CONCERN FOR C-DIFF & THAT STOOL WAS + FOR FOBI & DR FLEMING CONSULT PLACED.
--- NOTE | 2019-09-17 16:43 | NUR ---
INCONT LARGE GREEN MUCOID FOUL SMELLING STOOL. SENT FOR FOBI - UNABLE TO SEND C-DIFF D/T REGULATIONS REQUIRING 3 STOOLS.
--- NOTE | 2019-09-17 17:36 | NUR ---
DR FLEMING CONTACTED ABOUT CONSULT - REVIEWED - WILL CALL BACK LATER
--- NOTE | 2019-09-17 18:00 | NUR ---
DR FLEMING RETURNED CALL - ORDER FOR EGD TOMORROW. BLOOD BEING FLUSHED
--- NOTE | 2019-09-17 18:10 | NUR ---
BLOOD COMPLETED. LINE FLUSHED - VSS... REMAINS AT BEDSIDE.
--- NOTE | 2019-09-17 18:30 | NUR ---
LEVOPHED DECREASED TO 5mcg/min (18.8cc/hr) TEMP 99.2 RECTAL. WEIGHT SHIFTED PER REQUEST BUT ASKED FOR HER TO STAY ON HER BACK AT THIS TIME PULMACARE REMAINS AT 20 CC/HR PER DR MOONEY (DO NOT INCREASE RATE AT THIS TIME PER DR MOONEY)DE LA VEGA PATENT FOR STRAW URINE
[2019-09-17 19:19] LABS: ALBUMIN 1.9 gm/dl (3.1-4.5); BUN 18 mg/dl (7-24); CHLORIDE 109 mmol/L (98-107); POTASSIUM 3.6 mmol/L (3.5-5.1); SODIUM 140 mmol/L (136-145)
--- NOTE | 2019-09-17 19:23 | NUR ---
CALL PLACED TO NEPHROLOGY ABOUT LABS ORDERED.. AWAITING RETURN CALL
--- NOTE | 2019-09-17 19:31 | NUR ---
DR CONNELLY CALLED BACK ORDERS RECEVIED AFTER LABS REVIEWED
[2019-09-18] VITALS (66 sets, daily range): BP systolic 97–155; BP diastolic 63–100
[2019-09-18 06:07] LABS: ALBUMIN 1.8 gm/dl (3.1-4.5); ALKALINE PHOSPHATASE 63 U/L (45-117); BUN 14 mg/dl (7-24); CHLORIDE 109 mmol/L (98-107); CREATININE 0.68 mg/dL (0.55-1.02); POTASSIUM 3.6 mmol/L (3.5-5.1); SGOT/AST 60 IU/L (3-35); SGPT/ALT 31 U/L (12-78); SODIUM 139 mmol/L (136-145); TOTAL PROTEIN 5.5 gm/dL (6.4-8.2)
[2019-09-18 06:11] LABS: BASO % 0.2 % (0.0-1.0); EOS % 0.2 % (1.0-4.0); HEMATOCRIT 29.5 % (37.0-47.0); HEMOGLOBIN 9.7 g/dl (12.0-16.0); LYMPH # 0.9 10*3/uL (1.3-4.4); LYMPH % 7.3 % (27.0-41.0); MEAN CORPUSCULAR HGB 28.3 pg (27.0-31.0); MEAN CORPUSCULAR HGB CONC 32.9 g/dl (33.0-37.0); MEAN PLATELET VOLUME 10.3 fl (9.6-12.3); MONO # 0.8 10*3/uL (0.1-1.0); MONO % 5.9 % (3.0-9.0); NEUT % 85.5 % (47.0-73.0); PLATELET COUNT AUTOMATED 187 10*3/uL (130-400); RED BLOOD COUNT 3.43 10*6/uL (4.10-5.10); RED CELL DISTRI WIDTH 16.1 % (0-14.5); WHITE BLOOD COUNT 12.8 10*3/uL (4.8-10.8)
--- NOTE | 2019-09-18 07:30 | NUR ---
RESTING IN BED. ORAL CARE GIVEN. TURNED AND REPOSITIONED ONTO RIGHT SIDE. OGT PLACEMENT VERIFIED BY AIR BOLUS. WHEEZES AND RHONCHI HEARD IN LUNG FRANCO. BP 104/75. PULSE OX 100% ON VENT. DE LA VEGA DRAINING CLEAR YELLOW URINE. DOES GRIMACE WHEN TURNED. TEMP 99.4 RECTALLY. DIPRIVAN GTT INFUSING AT 30 ABBY'S; LEVOPHED GTT INFUSING AT 3 ABBY'S, AND LR INFSUING AT 40CC/HR ALL VIA RIJ MLC.
[2019-09-18 07:51] LABS: ABG BASE EXCESS -0.2 mmol/L (-2.0-2.0); ARTERIAL BLOOD GAS PH 7.396 (7.35-7.45)
--- NOTE | 2019-09-18 08:15 | NUR ---
STOOL SENT TO LAB FOR C-DIFF
--- NOTE | 2019-09-18 09:10 | NUR ---
dr. fraga here to see patient on consult. Sedation turned off to check neuro status.
--- NOTE | 2019-09-18 09:35 | NUR ---
Eyes open, follows commands, tracks with eyes around room. Diprivan turned back on at 30 garland's
--- NOTE | 2019-09-18 11:12 | NUR ---
Received order for Palliative. [facility]axed order to [facility].
--- NOTE | 2019-09-18 11:30 | NUR ---
EGD BEING DONE AT BEDSIDE BY DR. FLEMING
--- NOTE | 2019-09-18 12:00 | NUR ---
LEVOPHED GTT TITRATED DOWN TO 2 ABBY'S. BP 114/73
--- NOTE | 2019-09-18 13:31 | NUR ---
Late Note: REFUND CLERK spoke with patients daughter this morning about her father not making the proper decision for her mother, the patient. Patients daughter stated that her father does have a competency evaluation on Monday with Dr. Friend. Patients daughter expressed concerns that her father does not grasp the severity of the patients medical condtion. Patients daughter asked that this REFUND CLERK come back and speak with both herself and the patients spouse when he arrived. After while the REFUND CLERK returned to the patients room. Patients and daughter were both present. Patients daughter stated that the patients signed the paperwork to change the patients Code Status. Patients daughter and stated there is no need for this REFUND CLERK at this time. REFUND CLERK to follow respectfully. -ANGELICA Caceres
--- NOTE | 2019-09-18 16:00 | NUR ---
LEVOPHED GTT TURNED OFF
[2019-09-18 16:06] LABS: ACID FAST SPEC PROCESSING Concentration (.)
--- NOTE | 2019-09-18 20:00 | NUR ---
PT RESTING ON BED ON VENT. SETTING APPROPRIATE PER ORDERS. SUCTIONING COMPLETED WITH THIN WHITE SPUTUM. PT AROUSABLE TO VOICE OR STIMULI. LACTATED RINGER INFUSION CONTINUES. DIPROVAN INFUSION CONTINUES. VANCOMYCIN STARTED PER ORDERS. DE LA VEGA CATHETER INTACT. NO DISTRESS NOTED AT THIS ITME.
--- NOTE | 2019-09-18 21:27 | NUR ---
24 HR chart check completed.
--- NOTE | 2019-09-18 22:00 | NUR ---
BED BATH GIVEN. PT RESTING QUIETLY. NO DISTRESS NOTED. DE LA VEGA CATHETER DRAINED YELLOW URINE WITH SOME SEDIMENT. LINENS AND GOWN CHANGED. PT TOLERATED WELL.
[2019-09-19] VITALS: BP 118/82
[2019-09-19 04:00] VITALS: BP 131/87
[2019-09-19 06:08] LABS: ALBUMIN 1.7 gm/dl (3.1-4.5); ALKALINE PHOSPHATASE 66 U/L (45-117); BUN 10 mg/dl (7-24); CHLORIDE 109 mmol/L (98-107); CREATININE 0.58 mg/dL (0.55-1.02); POTASSIUM 3.6 mmol/L (3.5-5.1); SGOT/AST 58 IU/L (3-35); SGPT/ALT 30 U/L (12-78); SODIUM 141 mmol/L (136-145); TOTAL PROTEIN 5.3 gm/dL (6.4-8.2)
[2019-09-19 06:32] LABS: BASO % 0.1 % (0.0-1.0); EOS % 0.3 % (1.0-4.0); HEMATOCRIT 26.1 % (37.0-47.0); HEMOGLOBIN 8.5 g/dl (12.0-16.0); LYMPH % 11.7 % (27.0-41.0); MEAN CELL VOLUME 86.7 fl (81.0-99.0); MEAN CORPUSCULAR HGB 28.2 pg (27.0-31.0); MEAN CORPUSCULAR HGB CONC 32.6 g/dl (33.0-37.0); MEAN PLATELET VOLUME 10.8 fl (9.6-12.3); MONO # 0.4 10*3/uL (0.1-1.0); MONO % 4.2 % (3.0-9.0); NEUT # 7.3 10*3/uL (2.3-7.9); NEUT % 82.8 % (47.0-73.0); PLATELET COUNT AUTOMATED 198 10*3/uL (130-400); RED BLOOD COUNT 3.01 10*6/uL (4.10-5.10); RED CELL DISTRI WIDTH 16.5 % (0-14.5); WHITE BLOOD COUNT 8.9 10*3/uL (4.8-10.8)
[2019-09-19 07:35] LABS: ABG BASE EXCESS 1.4 mmol/L (-2.0-2.0); ARTERIAL BLOOD GAS PH 7.427 (7.35-7.45)
--- NOTE | 2019-09-19 07:45 | NUR ---
TURNED AND REPOSITIONED ONTO RIGHT SIDE. RECTAL TEMP 100.5. HEART RATE 70'S. PULSE OX 97% ON VENT. DIPRIVAN GTT INFUSING AT 30 ABBY'S AND LR INFUSING AT 40CC/HR
[2019-09-19 08:00] VITALS: BP 114/74
--- NOTE | 2019-09-19 08:54 | NUR ---
HUMAN RESOURCES SERVICES SPECIALIST went to see if the patients family was at bedside to discuss which Hospice company they would like to have. Patients family is not present. HUMAN RESOURCES SERVICES SPECIALIST will follow back up with the patients family. -ANGELICA Caceres
--- NOTE | 2019-09-19 09:20 | NUR ---
ZAID GTT TURNED OFF. DR. MOONEY HERE
--- NOTE | 2019-09-19 09:45 | NUR ---
PLACED ON C-PAP 5; PS 10
--- NOTE | 2019-09-19 09:59 | NUR ---
CLINICAL CYTOGENETICIST SCIENTIST went to see if patients family was at bedside. Patients room is closed and blinds were down. Will follow up with patients family to discuss a Hospice Agency. -ANGELICA Caceres
--- NOTE | 2019-09-19 10:04 | NUR ---
Castro Farfan from [facility] called and stated patients ABG results were good so they will be extubating patient at noon today and placing her on bipap. She stated she notified patients daughter who is on her way in. SW will dicuss hospice with family.
--- NOTE | 2019-09-19 10:48 | NUR ---
SUPERVISOR POLE YARD spoke with the patients daughter. Patients daughter stated she would like [facility]. SUPERVISOR POLE YARD informed Reproduction Artist Eryn, who will fax referral to [facility]. -ANGELICA Caceres
--- NOTE | 2019-09-19 10:53 | NUR ---
Hospice order received, family chose [facility]. Order and referral faxed.
--- NOTE | 2019-09-19 11:11 | NUR ---
PLACED ON CPAP+5 PSV +10 AT 0947 PER ORDER.
--- NOTE | 2019-09-19 11:18 | NUR ---
[facility] called back and stated ESTELLA Flaherty will be here to meet with family between 1 and 1:30 this afternoon; I spoke with Maryann Rosas and informed her, she stated the family is in with patient and she will notify them as well.
--- NOTE | 2019-09-19 11:26 | NUR ---
DR. WONG HERE TO SEE PATIENT. FAMILY WANTS TO WAIT ANOTHER FEW HOURS TO EXTUBATE UNTIL [facility] CAN COME IN FROM [facility], HOSPICE WILL BE HERE AROUND 1:30 PM
--- NOTE | 2019-09-19 11:32 | NUR ---
MEDICATED WITH VERSED 5MG IV FOR RESTLESSNESS AND COMFORT
[2019-09-19 11:44] LABS: ABG BASE EXCESS -0.1 mmol/L (-2.0-2.0); ARTERIAL BLOOD GAS PH 7.338 (7.35-7.45)
[2019-09-19 12:00] VITALS: BP 144/74
--- NOTE | 2019-09-19 12:55 | NUR ---
HOSPICE MEETING WITH FAMILY AT 130 TODAY. WILL CONTINUE TO FOLLOW.
[2019-09-19 13:53] LABS: ABG BASE EXCESS 2.7 mmol/L (-2.0-2.0); ARTERIAL BLOOD GAS PH 7.404 (7.35-7.45)
--- NOTE | 2019-09-19 14:15 | NUR ---
SPOKE WITH DR. MOONEY REGARDING ABG'S. ORDERS RECEIVED TO EXTUBATE. HOSPICE HERE AT BEDSIDE.
--- NOTE | 2019-09-19 14:25 | NUR ---
MEDICATED WITH MORPHINE 5MG IV PRIOR TO EXTUBATION. EXTUBATED AND PLACED ON NASAL CANNULA 3L. RESPIRATIONS MOIST. SUCTIONED FOR ORAL SECRETIONS. NO GAG REFLEX NOTED.
--- NOTE | 2019-09-19 15:00 | NUR ---
RESPIRATIONS MOIST AND LABORED AT 32 BREATHS PER MINUTE. FAMILY HERE AT BEDSIDE, MEDICATED WITH MORPHINE 3MG IV ORDERED
[2019-09-24 07:06] LABS: ADENOVIRUS Negative (Negative); INFLUENZA A Negative (Negative); INFLUENZA B Negative (Negative); METAPNEUMOVIRUS Negative (Negative); PARAINFLUENZA 1 Positive (Negative); PARAINFLUENZA 2 Negative (Negative); PARAINFLUENZA 3 Negative (Negative); RHINOVIRUS Negative (Negative); RSV A Negative (Negative); RSV B Negative (Negative)
== END 2019-09-19 15:36 | disposition hospice, home (50) | DRG 871 ==
LOC: ED 16:24 → EDHOLD 17:34 → ED 17:34 → ICCU 20:29
PROVIDERS: Emergency Medicine; Internal Medicine; Internal Medicine Critical Care Medicine; Internal Medicine Nephrology; ADMIT Internal Medicine
PROC: 5A1945Z Respiratory Ventilation, 24-96 Consecutive Hours (ICD-10-PCS; principal; 2019-09-15)
PROC: 0BH17EZ Insertion of Endotracheal Airway into Trachea, Via Natural or Artificial Opening (ICD-10-PCS; principal; 2019-09-15)
PROC: 0B9F8ZZ Drainage of Right Lower Lung Lobe, Via Natural or Artificial Opening Endoscopic (ICD-10-PCS; 2019-09-17)
PROC: 0B9J8ZX Drainage of Left Lower Lung Lobe, Via Natural or Artificial Opening Endoscopic, Diagnostic (ICD-10-PCS; 2019-09-17)
PROC: 0B9D8ZZ Drainage of Right Middle Lung Lobe, Via Natural or Artificial Opening Endoscopic (ICD-10-PCS; 2019-09-17)
PROC: 0B9G8ZZ Drainage of Left Upper Lung Lobe, Via Natural or Artificial Opening Endoscopic (ICD-10-PCS; 2019-09-17)
PROC: 0B948ZZ Drainage of Right Upper Lobe Bronchus, Via Natural or Artificial Opening Endoscopic (ICD-10-PCS; 2019-09-17)
PROC: 30233N1 Transfusion of Nonautologous Red Blood Cells into Peripheral Vein, Percutaneous Approach (ICD-10-PCS; 2019-09-17)
PROC: 0DJ08ZZ Inspection of Upper Intestinal Tract, Via Natural or Artificial Opening Endoscopic (ICD-10-PCS; 2019-09-18)
DX: A41.9 Sepsis, unspecified organism (principal); J69.0 Pneumonitis due to inhalation of food and vomit; E43 Unspecified severe protein-calorie malnutrition; R65.21 Severe sepsis with septic shock; J96.01 Acute respiratory failure with hypoxia; R53.2 Functional quadriplegia; N17.0 Acute kidney failure with tubular necrosis; J96.02 Acute respiratory failure with hypercapnia; K29.71 Gastritis, unspecified, with bleeding; D62 Acute posthemorrhagic anemia; G61.0 Guillain-Barre syndrome; T17.800A Unspecified foreign body in other parts of respiratory tract causing asphyxiation, initial encounter; N39.0 Urinary tract infection, site not specified; K52.9 Noninfective gastroenteritis and colitis, unspecified; Z66 Do not resuscitate; Z51.5 Encounter for palliative care; E78.5 Hyperlipidemia, unspecified; E03.9 Hypothyroidism, unspecified; R91.8 Other nonspecific abnormal finding of lung field; E55.9 Vitamin D deficiency, unspecified; M85.80 Other specified disorders of bone density and structure, unspecified site; G89.4 Chronic pain syndrome; E11.42 Type 2 diabetes mellitus with diabetic polyneuropathy; B96.1 Klebsiella pneumoniae [K. pneumoniae] as the cause of diseases classified elsewhere; M19.90 Unspecified osteoarthritis, unspecified site; K44.9 Diaphragmatic hernia without obstruction or gangrene; Z88.1 Allergy status to other antibiotic agents; Z79.899 Other long term (current) drug therapy; Z79.82 Long term (current) use of aspirin; Z83.3 Family history of diabetes mellitus; Z68.24 Body mass index [BMI] 24.0-24.9, adult

== ENCOUNTER 2019-09-19 15:40 | Inpatient (IN) | payer OTHER, MEDICARE, MEDICAID ==
[~2019-09-19] VITALS: Ht 152.4 cm; Wt 57.2 kg
[~2019-09-19 15:40] MED LIST changes: +ASPERCREME LID1 EACH T; +ASPIRIN ADULT L81 M1 PO; +BACLOFEN5 MG PO; +Ipratropium Brom3 ML INH; +LASIX20 MG PO; +MUCINEX ER600 MG PO; +OCUVITE WITH L1 EACH PO; +PERIDEX118 ML MM; +REMERON15 M2 PO
--- NOTE | 2019-09-19 16:00 | NUR ---
Time: 1599 A 78 year old F admitted to [facility] under services of SINGH JOHNSON DO, Pt. arrived via from [place]. Chief complaint: HOSPICE. LILIANA HENDRICKSON
--- NOTE | 2019-09-19 16:56 | NUR ---
MORPHINE GTT STARTED AT 1MG/HR
--- NOTE | 2019-09-19 18:43 | NUR ---
TRANSFERRED TO ROOM 421 VIA BED
[2019-09-19 20:00] VITALS: BP 121/69
[2019-09-20] VITALS: BP 109/64
--- NOTE | 2019-09-20 01:30 | NUR ---
24 HOUR CHART CHECK COMPLETE.
--- NOTE | 2019-09-20 03:30 | NUR ---
MOUTH CARE PREFORMED AT THIS TIME. PT REPOSITIONED FOR COMFORT. SUBLINGUAL ATROPINE DROPS ADMINISTERED ORDERED.
[2019-09-20 04:00] VITALS: BP 98/61
--- NOTE | 2019-09-20 05:43 | NUR ---
PT HAS BEEN AGONAL BREATHING THROUGHOUT THE NIGHT AND INTO THE MORNING. O2 SATS HAVE REMAINED IN THE HIGH 90'S ON A NRB MASK. PT RECEIVING 1MG/HR OF MORPHINE VIA TARIFF COMPILING CLERK PUMP. NO SIGNS OF OVERT DISTRESS NOTED AT THIS TIME. ATIVAN ADMINISTERED ORDERED. NO MOTTLING OBSERVED. WILL CONTINUE TO MONITOR.
[2019-09-20 08:00] VITALS: BP 83/51
--- NOTE | 2019-09-20 08:21 | NUR ---
ARRIVED ON SHIFT, PATIENT NON-RESONSIVE, NO FAMILY AT BEDSIDE, WHITE BOARD UPDASTED.
--- NOTE | 2019-09-20 08:22 | NUR ---
Shift chart check completed.
--- NOTE | 2019-09-20 09:20 | NUR ---
OUTSIDE PRODUCTION INSPECTOR FROM [facility] IN TO SEE PATIENT, AND MEET WITH FAMILY.
--- NOTE | 2019-09-20 11:51 | NUR ---
PT IS UNDER HOSPICE CARE. WILL CONTINUE TO FOLLOW.
[2019-09-20 16:00] VITALS: BP 133/73
--- NOTE | 2019-09-20 16:38 | NUR ---
PATIENT HAVING INCREASE IN NON VERBAL PAIN, PATIENT GRIMACES AND GROANS WITH MINIMAL PASSIVE MOVEMENT, FAMILY VERSED WHEN HOSPICE NURSE WAS IN EARLIER SHE WAS TO RECOMMEND INCREASE IN MORPHINE DRIP. REVIEWED DOCUMENTATION FROM [facility] NUR[facility], NO RECOMMENDATION MADE. CALL PLACED TO [facility], TO INQUIRE TO NEXT NURSE VISIT.
--- NOTE | 2019-09-20 18:30 | NUR ---
HOSPICE HERE TO SEE PATIENT, RECEIVED RECCOMENDARIONS FOR TITRATION OF MORPHINE TO 2MG/HR NOW, THEN TITRATE Q 30MINUTES, UP TO 5MG HOUR, THEN CALL [facility]. ALSO CHANGE O2 TO NC TITRATE TO KEEP O2 GREATER THAN 90, CALL PLACED TO Sylvain MERCHANT HE AGRRED WITH RECOMMENDATIONS, AND GAVE TO. MEDICATIONS CHANGED PER ORDERS.
--- NOTE | 2019-09-20 19:45 | NUR ---
MORPHINE GTT INCREASED TO 3MG/HR, PATIENT NOTABLY IN PAIN, GRIMACED WHEN TOUCH/MOVED. WILL RECHECK IN 30 MINUTES.
[2019-09-20 20:00] VITALS: BP 97/61
--- NOTE | 2019-09-20 20:15 | NUR ---
PATIENT STILL NOTABLY IN PAIN, GRIMACING WITH SILIGHT TOUCH. MORPHINE GTT INCREASE TO 4MG/HR. WILL RECHECK IN 30 MINUTES
--- NOTE | 2019-09-20 20:45 | NUR ---
PATIENT IS NOTABLY CALM AT THIS TIME. NO DISTRESS NOTED WHEN TOUCHED/SLIGHTLY MOVED. WILL CONTINUES TO MONITOR
--- NOTE | 2019-09-20 22:00 | NUR ---
PATIENT RESTIN COMFORTABLY IN BED. NO OVERT DISTRESS NOTED. NO PAIN NOTED. MORPHINE GTT STILL AT 4MG/HR. WILL CONTINUE TO MONITOR
--- NOTE | 2019-09-20 23:00 | NUR ---
NO DISTRESS NOTED. RESTING QUIELTY. WILL CONITUE TO MONITOR
[2019-09-21] VITALS: BP 107/63
--- NOTE | 2019-09-21 | NUR ---
PATIENT RESTING, EYES CLOSED. NO DISTRESS/PAIN NOTED. WILL CONTINUE TO MONITOR.
--- NOTE | 2019-09-21 01:00 | NUR ---
RESTING IN BED QUIETLY. NO DISTRESS NOTED.
--- NOTE | 2019-09-21 02:00 | NUR ---
RESTING QUIETLY, EYES CLOSED. RESP ERND. WILL CONTINUE TO MONITOR
--- NOTE | 2019-09-21 03:00 | NUR ---
O2 DECREASE TO 2.5L NC, PATIENT TOLERATED WELL SPO2 98-99%. NO DISTRESS NOTED. MORPHINE GTT STILL AT 4MG/HR. NO PAIN NOTED. WILL CONITNUE TO MONITOR
--- NOTE | 2019-09-21 04:00 | NUR ---
RESTING COMFORTABLY IN BED, EYES CLOSED. NO DISTRESS NOTED
--- NOTE | 2019-09-21 05:00 | NUR ---
RESTING COMFORTABLY. WILL CONTINUE TO MONITOR
[2019-09-21 08:00] VITALS: BP 92/55
--- NOTE | 2019-09-21 10:56 | NUR ---
Hospice nurse in and states that pt appears uncomfortable after routine care was provided. States tachypneic. Requesting morphine be increased to 5 mg/hr at this time. Dose increased per titrate order. Witnessed by Navi Simms Rn.
--- NOTE | 2019-09-21 11:48 | NUR ---
New bag of morphine hung and increased dose to 7 mg/hr per orders.
--- NOTE | 2019-09-21 13:00 | NUR ---
Respirations 26. Increased morphine fo 10 mg/hr per titrate orders. Family remains at bedside.
--- NOTE | 2019-09-21 13:30 | NUR ---
Respirations 22. Appears more comfortable. Morphine INSPECTION MANAGER infusing remains at 10 mg/hr.
[2019-09-21 16:00] VITALS: BP 59/42
--- NOTE | 2019-09-21 16:00 | NUR ---
IV ATIVAN 1MG GIVEN PER PRN ORDER FOR RESTLESSNESS/TACHYPNEA. RR 22 PER MINUTE. FAMILY AT BEDSIDE. WILL MONITOR EFFECTIVENESS. IV MORPHINE INFUSING VIA EVP MANAGING DIRECTOR PUMP AT 10MG/HR. WILL CONTINUE TO MONITOR.
--- NOTE | 2019-09-21 17:30 | NUR ---
PATIENT CONTINUES TO REST COMFORTABLY. MORPHINE GTT MAINTAINED VIA FACILITIES MAINTENANCE ENGINEER PUMP. WILL CONTINUE TO MONITOR. FAMILY AT BEDSIDE.
--- NOTE | 2019-09-21 19:00 | NUR ---
PATIENT RESTING QUIETLY IN BED, EYES CLOSED. NO DISTRESS/PAIN NOTED. WILL CONTINUE TO MONITOR
[2019-09-21 20:00] VITALS: BP 64/42
--- NOTE | 2019-09-21 20:00 | NUR ---
ATTEMPT TO CALL [facility] FOR NEW RECOMMENDATION D/T PHARM NOT HAVING ENOUGH MORPHINE FOR THROUGHTOUT NIGHT.
--- NOTE | 2019-09-21 20:14 | NUR ---
NISHA FROM [facility] CALLED BACK. STATED ORDERS PROVIDED BY PIANO REFINISHER STATED TO USE DILAUDID GTT AFTER NO MORE MORPHINE AVAILABLE TO START AT 1MG/HR AND INCREASE BY 0.1MG/HR Q30 MINUTES PRN WITH A MAX DOSE OF 2MG/HR. MADE AWARE, STATED OK.
--- NOTE | 2019-09-21 21:15 | NUR ---
MORPHINE GTT INCREASE TO 11MG/HR. PATIENT NOTED TO HAVE INCREASE RESP OF 28/MIN AND PERIODS OF APNEA OF 5 SECONDS. WILL CONTINUE TO MONITOR
--- NOTE | 2019-09-21 21:45 | NUR ---
PATIENT DOES NOT LOOK COMFORTABLY AT THSI TIME. RESP AT STILL AT 28/MIN. MORPHINE GTT INCREASED TO 12MG/HR AT THIS TIME.
--- NOTE | 2019-09-21 22:15 | NUR ---
PATIENT STILL NOTED TO HAVE AIR HUNGER, RESP ARE 30/MIN WITH PERIODS OF APNEA. MORPHINE GTT INCREASED TO 13MG/HR.
--- NOTE | 2019-09-21 22:45 | NUR ---
MORPHINE GTT INCREASED TO 14MG/HR. PATIENT IS STILL HAVING AIR HUNGER, BUT BETTER THAN FROM LAST DOSE INCREASE. RESP 28/MIN. WILL CONTINUE TO MONITOR
--- NOTE | 2019-09-21 23:15 | NUR ---
PATIENT RESP ARE EASY AT THIS TIME. STILL SHALLOW, RESP ARE 24/MIN. WILL CONTINUE TO MONITOR
--- NOTE | 2019-09-21 23:56 | NUR ---
PATIENT RESTING COMFORTABLY. RESP ARE BETTER AND NOT SHALLOW, 24/MIN. WILL CONITNUE TO MONITOR
[2019-09-22] VITALS: BP 66/33
--- NOTE | 2019-09-22 01:00 | NUR ---
MORPHINE GTT SWITCHED TO DILUADID AT THIS TIME. STARTING DOSE OF 1MG/HR, WILL MONITOR
--- NOTE | 2019-09-22 01:32 | NUR ---
PATIENT IS COMFORTBALY RESTING AT THIS TIME. DILAUDID GTT AT 1MG/HR. RESP ARE 24-26/MIN. WILL CONITNUE TO MONITOR
--- NOTE | 2019-09-22 02:03 | NUR ---
24 HR chart check completed.
--- NOTE | 2019-09-22 04:30 | NUR ---
DILAUDID GTT INCREASED TO 1.1MG/HR. PATIENT NOTED TO HAVE AIR HUNGER, RESP 28/MIN. WILL CONTINUE TO MONITOR
--- NOTE | 2019-09-22 05:00 | NUR ---
1.1MG/HR APPEARS EFFECTIVE RESP 22-24/MIN.
--- NOTE | 2019-09-22 05:45 | NUR ---
PATIENT NOTED TO HAVE AIR HUNGER RESP 28/MIN. DILUADID GTT INCREASE TO 1.2MG/HR. WILL MONITOR
--- NOTE | 2019-09-22 06:15 | NUR ---
PATIENT RESP ARE 20/MIN. NOTED TO STILL HAVE AIR HUNGER WITH PERIODS OF APNEA. DILAUDID GTT INCREASED TO 1.3MG/HR.
--- NOTE | 2019-09-22 06:45 | NUR ---
PATIENTS AIR HUNGER IMPROVED AT 1.3MG/HR OF DILAUDID. WILL CONTINUE TO MONITOR
[2019-09-22 08:00] VITALS: BP 53/36
--- NOTE | 2019-09-22 08:34 | NUR ---
RESPS 28, APNEIC.INCREASED DILAUDID TO 1.4 ML/HR PER PHYSICIAN ORDER.WILL REASSESS AND TITRATE GTT PER ORDER NEEDED.
--- NOTE | 2019-09-22 09:20 | NUR ---
MULTIPLE ATTEMPTS MADE TO FEED PT. PT REFUSED TO EAT.
--- NOTE | 2019-09-22 09:46 | NUR ---
PT APNIC AND RESPSERS 24, TIRATED DILAUDID GTT TO 1.5 ML/HR PER PHYSICIAN ORDER.MOUTHCARE PROVIDED.WILL CONTINUE TO MONITOR.
--- NOTE | 2019-09-22 10:28 | NUR ---
PT REPOSITIONED FOR COMFORT RR APNEIC. RR 22. TOLERATED WELL. AT BEDSIDE.VOICES NO OTHER MEDS. CALL LIGHT IN REACH.
--- NOTE | 2019-09-22 11:46 | NUR ---
PT TACHYPNEIC TITRATED DILAUDID TO 1.6 MG/HR PER PHYSICIAN ORDER.
[2019-09-22 12:00] VITALS: BP 62/42
--- NOTE | 2019-09-22 12:51 | NUR ---
COMMUNITY HEAD BANQUET WAITER/WAITRESS, BRIAN, IN TO SEE PT. TITRATED DILAUDID GTT TO 1.7 MG/HR PER HER RECCOMMENDATIONS. PT SPO2 100% ON 2LNC. PT LEFT FINGERTIPS BEGINNING TO MOTTLE. TACHYPNEIC AT 24 RESPS /MIN. FAMILY AT BEDSIDE. VOICES NO OTHER NEEDS AT THIS TIME. CALL LIGHT IN REACH.
--- NOTE | 2019-09-22 13:28 | NUR ---
TITRATED DILAUDID TO 1.8 MG/ML PER HOSPICE RRN REQUEST FOR DISTRESS PER PHYSICIAN'S ORDER.PT RR 24. FAMILY AT BEDSIDE. VOICES NO OTHER NEEDS AT THIS TIME.
--- NOTE | 2019-09-22 14:03 | NUR ---
TITRATED DILAUDID GTT TO 1.9MG/HR/19 ML/HR PER PHYSICIAN ORDER.
--- NOTE | 2019-09-22 15:47 | NUR ---
TITRATED DILAUDID TO 2.0 MG/HR PER PHYSICIAN ORDER D/T TACHYPNEIA. RR26.
[2019-09-22 16:00] VITALS: BP 46/33
--- NOTE | 2019-09-22 17:10 | NUR ---
TITRATED DILAUDID GTT TO 2.1 MG/HR PER PHYSICIAN ORDER.PT RESPERS 24-26. APNEIC AT TIMES.FAMILY AT BESIDE. VOICES NO NEEDS. EDUCATION PROVIDED REGARDING AND DYING.EMOTIONAL SUPPORT PROVIDED TO FAMILY.MOUTHCARE PROVIDED AT THIS TIME. CALL LIGHT IN REACH.WILL CONTINUE TO MONITOR.
--- NOTE | 2019-09-22 18:38 | NUR ---
PT TACHYPNEIC. TITRATED DILAUDID GTT @ 2.2 MG/HR.
--- NOTE | 2019-09-22 19:00 | NUR ---
PATIENT RESTING AT THIS TIME, PRESENT. NO DISTRESS NOTED.
[2019-09-22 20:00] VITALS: BP 38/25
--- NOTE | 2019-09-22 20:50 | NUR ---
PATIENT CEASED TO BREATH AT THIS TIME, FOUND BY THIS NURSE. SECOND RN VERIFIED, NEGIN. INFORMED, STATED WILL BE NOTIFIED FOR CERTIFICATE.
--- NOTE | 2019-09-22 20:55 | NUR ---
PATIENT CLEANED AND RIJ/R ARM IVS REMOVED.
--- NOTE | 2019-09-22 20:58 | NUR ---
NEXT OF KIN JUAN AND FAUSTO INFORMED THAT FAMILY MEMBER PASSED. STATED THAT HE WILL BE DOWN.
--- NOTE | 2019-09-22 21:20 | NUR ---
DIXON YAP. KIRBY GAVE PERMISSION TO RELEASE BODY.
--- NOTE | 2019-09-22 21:28 | NUR ---
CELE CALLED BACK. STATED THAT TI WILL BE COMING IN
--- NOTE | 2019-09-22 23:38 | NUR ---
[place] PICK-UP TO TAKE TO [facility].
== END 2019-09-22 23:38 | disposition expired | DRG 871 ==
LOC: ICCU 15:40 → 4E 15:40 → ICCU 15:52 → 4E 18:28
PROVIDERS: ADMIT Internal Medicine
DX: A41.9 Sepsis, unspecified organism (principal); R65.21 Severe sepsis with septic shock; J69.0 Pneumonitis due to inhalation of food and vomit; J96.01 Acute respiratory failure with hypoxia; R53.2 Functional quadriplegia; J96.02 Acute respiratory failure with hypercapnia; G61.0 Guillain-Barre syndrome; Z51.5 Encounter for palliative care; E83.42 Hypomagnesemia; M19.90 Unspecified osteoarthritis, unspecified site; M51.36 Other intervertebral disc degeneration, lumbar region; M48.02 Spinal stenosis, cervical region; M51.34 Other intervertebral disc degeneration, thoracic region; E78.5 Hyperlipidemia, unspecified; K57.90 Diverticulosis of intestine, part unspecified, without perforation or abscess without bleeding; E03.9 Hypothyroidism, unspecified; E11.40 Type 2 diabetes mellitus with diabetic neuropathy, unspecified; Z86.711 Personal history of pulmonary embolism; Z87.891 Personal history of nicotine dependence; Z83.3 Family history of diabetes mellitus; Z88.2 Allergy status to sulfonamides